=== PATIENT | female | born 1950 | race Caucasian/White ===

== ENCOUNTER 2016-12-26 09:25 | Inpatient (IN) | payer MEDICAID, MEDICARE ==
[2016-12-26 09:51] LABS: Oxyhemoglobin 93.9 % (94.0-97.0); Sodium 141 mmol/L (135-148)
[2016-12-26 09:56] LABS: Modified Allen's Test NOT DONE
[2016-12-26 09:57] LABS: #Eosinphils 0.3 thou/uL (0.0-0.7); #Lymphocytes 0.8 thou/uL (1.20-3.40); #Monocytes 0.5 thou/uL (0.11-0.59); #Neutrophils 7.2 thou/uL (1.40-6.50); %Basophils 0.5 % (0.0-1.0); %Eosinophils 3.4 % (0.0-10.0); %Lymphocytes 9.3 % (21.0-51.0); %Monocytes 5.9 % (0.0-10.0); Hematocrit 44.9 % (36.0-47.0); Mean Platelet Volume 7.9 fL (7.4-10.4); Red Blood Cell (RBC) Count 4.64 mill/uL (4.20-5.40); White Blood Cell (WBC) Count 8.9 thou/uL (4.8-10.8)
[2016-12-26 09:57] LABS: Mode O2 8L/M NEB MASK; Vent NO
[2016-12-26 10:10] LABS: Lactic Acid - Sepsis 2.4 mmol/L (0.5-2.2)
[2016-12-26 10:15] LABS: ALT (SGPT) 19 U/L (8-55); AST (SGOT) 25 U/L (5-34); Alkaline Phosphatase 126 U/L (40-150); Anion Gap 14 mmol/L (10-20); BUN (Urea Nitrogen) 9 mg/dL (9.8-20.1); Bilirubin, Total 0.4 mg/dL (0.2-1.2); Calc. Creatinine Clearance 0 mL/min (70-130); Calcium 9.4 mg/dL (7.8-10.44); Carbon Dioxide 28 mmol/L (23-31); Chloride 104 mmol/L (98-107); Estimated GFR-MDRD 61; Globulin 3.9 g/dL (2.4-3.5); Protein, Total 7.4 g/dL (6.0-8.3)
[2016-12-26] MEDS ORDERED: methylPREDNISolone Sod Succ/PF 125 MG/2 ML VIAL ONE (10:24)
--- NOTE | 2016-12-26 10:25 | RAD ---
PORTABLE UPRIGHT FRONTAL CHEST RADIOGRAPH: DATE: 12/26/16. COMPARISON: 03/31/16. HISTORY: Low oxygen saturation, history of COPD, fever, difficulty breathing. FINDINGS: Heart and mediastinal contours are grossly unchanged. No pneumothorax is seen. There are diffuse i ncreased linear interstitial densities with pulmonary hyperinflation, similar when compared to the p rior exam. There is asymmetric increased linear density in the lateral aspect of the mid left lung zone and lef t perihilar region. There is dense opacity in the left base suggesting left lower lobe consolidatio n/collapse and left pleural fluid. Aeration in the left lung has worsened since the prior exam. IMPRESSION: Chronic interstitial opacity with pulmonary hyperinflation. Focal opacity in the left lung base has worsened and may signify volume loss, infectious pneumonitis, aspiration, and/or small volume pleur al fluid. POS: [facility]
[2016-12-26] MEDS ORDERED: Albuterol Sulfate 2.5 mg/3 ml Neb ONE (10:39)
[2016-12-26] MEDS ORDERED: cefTRIAXone\\ROCEPHIN 2 GM in Sodium Chloride 0.9% 100 ML IVPB ONE (10:45)
[2016-12-26 11:22] LABS: Bilirubin Negative (Negative); Blood, Urine Negative (Negative); Glucose, Urine (Dipstick) Negative (Negative); Ketone, Urine Negative (Negative); Nitrite Negative (Negative); Protein, Urine (Dipstick) Negative (Neg-Trace)
[2016-12-26 17:58] VITALS: BMI 33.1
[2016-12-26] MEDS ORDERED: Ondansetron ODT 4 MG TAB SL PRN (18:19)
[2016-12-26] MEDS ORDERED: Acetaminophen 325 MG TAB PO PRN ×2 (18:19→19:06)
[2016-12-26] MEDS ORDERED: Ondansetron HCl/PF 4 MG/2 ML Vial IVP PRN (18:19)
[2016-12-26] MEDS ORDERED: Dextrose 5 %-0.45 % NaCl 1,000 ML IV SCH (18:30)
[2016-12-26] MEDS: Sodium Chloride 0.45% 1,000 ML IV SCH (19:54)
[2016-12-26] MEDS: Cefepime 1 GM, Admixture Fee 1 EACH in Sterile Water 10 ML SLOW IVP SCH (19:54)
[2016-12-26] MEDS: Milk Of Magnesia 30 ML UDCUP PO SCH (21:41)
[2016-12-26] MEDS: Baclofen 10 MG TAB PO SCH (21:42)
[2016-12-26] MEDS: HYDROcodone/Acetaminophen 10/325 mg Tablet PO SCH (21:42)
[2016-12-26] MEDS: Senokot S 8.6-50 MG TAB PO SCH (21:42)
[2016-12-26] MEDS: ALPRAZolam 0.5 MG TAB PO SCH (21:43)
[2016-12-26] MEDS: Ondansetron ODT 4 MG TAB PO SCH (21:43)
[2016-12-26] MEDS: Ferrous Sulfate 325 MG TAB PO SCH (21:43)
[2016-12-26] MEDS: traZODone HCl 50 MG TAB PO SCH (21:43)
[2016-12-26] MEDS: Atorvastatin Calcium 40 MG TAB PO SCH (21:43)
[2016-12-26] MEDS: guaiFENesin ER 600 MG TAB PO SCH (21:44)
[2016-12-27] MEDS: Cefepime 1 GM, Admixture Fee 1 EACH in Sterile Water 10 ML SLOW IVP SCH ×3 (03:45→21:48)
--- NOTE | 2016-12-27 06:06 | HP ---
DATE OF ADMISSION: 12/26/2016 REASON FOR ADMISSION AND CHIEF COMPLAINT: Shortness of breath and hypoxia. HISTORY OF PRESENT ILLNESS: Ms. Freeman is a 66-year-old female with past medical histor y of COPD, hypertension, chronic pain, anxiety disorder, who was found to have hypoxia with O2 satur ation around 70s. The patient has been complaining of some shortness of breath this morning and donna e cough with yellowish sputum. EMS was called because of her respiratory distress. EMS found the p atient with respiratory distress, chest wheezing and also possible fever as well. The patient recei angel neb treatments. In the ER, the patient was evaluated and found to have a temperature of 101.1, respirations of 30, pulse of 128. In the ER, the patient thought she may have sepsis with possible pneumonia and chronic obstructive pulmonary disease exacerbation as well. The patient received ceft riaxone, Levaquin, and DuoNebs and admitted for further evaluation and management. PAST MEDICAL HISTORY: Includes COPD, chronic anemia, chronic back pain, anxiety disorder, hyperlipi demia, hypertension, and gastroesophageal reflux disease. PAST SURGICAL HISTORY: Status post tubal ligation, status post lobectomy in the left side. CURRENT MEDICATIONS: The patient is on Tylenol p.r.n., albuterol inhaler q.i.d. p.r.n., Xanax 1 mg t.i.d., Lipitor 40 mg at bedtime, baclofen 10 mg b.i.d., Symbicort 160/4.5 two puffs b.i.d. da yaneli, cyproheptadine 2 mg q.i.d., ferrous sulfate 325 mg b.i.d., Prozac 40 mg daily, Lasix 40 mg b.i. d., [place] 10/325 t.i.d., DuoNebs q.i.d., milk of magnesia p.r.n., Zofran p.r.n., MiraLax 17 grams da yaneli, KCl 10 mEq daily, Senokot p.r.n., trazodone 25 mg at bedtime. ALLERGIES: Multiple includes PENICILLIN, AMITRIPTYLINE and KETOROLAC. FAMILY HISTORY: Nothing significant. SOCIAL HISTORY: The patient is a resident of [facility]. No history of smoking. No hist ory of alcohol intake. REVIEW OF SYSTEMS: Cardiovascular: Has no chest pain. Has shortness of breath. Respiratory: Has cough and fever. Gastrointestinal: No nausea or vomiting. No abdominal pain. Genitourinary: No dysuria or hematuria. Central nervous system: No headache, no dizziness. PHYSICAL EXAMINATION: GENERAL: The patient is awake, not very alert. VITAL SIGNS: Temperature now 98.6, pulse 93, respirations 24, blood pressure 114/63. HEENT: Head is normocephalic, atraumatic. Pupils are equal and reactive to light. Nasopharynx is pale and dry. Hard and soft palate, no lesions seen. SKIN: Turgor is decreased. NECK: Supple. No JVD. LUNGS: Breath sounds diminished bilaterally. Percussion dull bilaterally. Expiratory wheeze prese nt bilaterally. CARDIAC: S1, S2 regular. ABDOMEN: Soft, no distention, no tenderness. Normal bowel sounds present. RECTAL: Deferred. CENTRAL NERVOUS SYSTEM: No focal deficits. LABORATORY AND X-RAY FINDINGS: CBC shows WBC 8.9, hemoglobin 14, hematocrit 44, platelets 262. Met abolic panel: Sodium 141, potassium 4.7, chloride 104, CO2 of 28, urea nitrogen 9, creatinine 0.91, glucose 146. Lactic acid 2.4. Urinalysis negative. ABG shows pH 7.4, pCO2 of 56, pO2 86, saturat ion 96%. EKG shows chronic interstitial markings with pulmonary hyperinflation. There is a focal o pacity in the left base, which is worsened. ASSESSMENT: 1. Acute on chronic respiratory failure secondary to chronic obstructive pulmonary disease. 2. Possible pneumonia, left lower lobe. 3. Systemic inflammatory response syndrome. 4. Encephalopathy, metabolic. 5. Chronic back pain. 6. Anxiety disorder. 7. Gastroesophageal reflux disease. 8. Chronic anemia. PLAN: 1. Vital signs q.4 hours. 2. Activity: As tolerated. 3. Allergies: PENICILLIN, AMITRIPTYLINE, KETOROLAC. 4. Diet: Regular. 5. Cefepime 1 gram IV piggyback q.6 hours. 6. Solu-Medrol 40 mg IVP q.6 hours. 7. Mucinex 600 b.i.d. 8. DuoNebs 1 unit q.4 hours. 9. IV fluids: Half normal at 70 mL per hour. 10. We will continue retirement medications. 11. Consult Infectious Disease.
[2016-12-27] MEDS: Mometasone/Formoterol 120 PUFF INHALER INH SCH ×2 (06:09→18:25)
[2016-12-27] MEDS: Ondansetron ODT 4 MG TAB PO SCH ×3 (06:56→21:49)
[2016-12-27] MEDS: Milk Of Magnesia 30 ML UDCUP PO SCH ×2 (09:28→21:46)
[2016-12-27] MEDS: Baclofen 10 MG TAB PO SCH ×2 (09:28→21:46)
[2016-12-27] MEDS: Potassium Chloride 10 MEQ TAB PO SCH (09:28)
[2016-12-27] MEDS: guaiFENesin ER 600 MG TAB PO SCH ×2 (09:28→21:49)
[2016-12-27] MEDS: Polyethylene Glycol 3350 17 GM Packet PO SCH (09:28)
[2016-12-27] MEDS: ALPRAZolam 0.5 MG TAB PO SCH ×3 (09:29→21:49)
[2016-12-27] MEDS: FLUoxetine HCl 20 MG CAP PO SCH (09:29)
[2016-12-27] MEDS: HYDROcodone/Acetaminophen 10/325 mg Tablet PO SCH ×3 (09:29→21:47)
[2016-12-27] MEDS: Ferrous Sulfate 325 MG TAB PO SCH ×2 (09:30→21:46)
[2016-12-27] MEDS: Loratadine 10 MG TAB PO SCH (09:30)
[2016-12-27] MEDS: Sodium Chloride 0.45% 1,000 ML IV SCH (10:32)
--- NOTE | 2016-12-27 20:17 | CON ---
DATE OF CONSULTATION: 12/27/2016 HISTORY OF PRESENT ILLNESS: She was admitted yesterday evening for shortness of breath. 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 She is lethargic. She is on multiple medications, known history of COPD. X-rays re viewed over the course of a year, has had persistent left-sided loss of volume; pleural effusion may be an infiltrate. Her oxygen saturations were low in the [facility], though she denied any cough ing or wheezing. Temperature 102. Difficulty to get much more history at this stage. PAST MEDICAL HISTORY: Reviewing the past medical record, it is pertinent for multiple medical probl ems including COPD, chronic pain, previous , previous anxiety. PREVIOUS SURGERIES: Status post lobectomy and tubal ligation. MEDICATIONS: From home includes trazodone 25, prednisone 20, potassium, nystatin, magnesium, Clarit in, hydrocodone, Lasix, Prozac 40, Zyrtec, Symbicort, baclofen and ProAir. ALLERGIES: Multiple includes AMITRIPTYLINE, PENICILLIN and ELLIPTA. SOCIAL/FAMILY HISTORY: Unremarkable. REVIEW OF SYSTEMS: Otherwise, difficult to obtain. PHYSICAL EXAMINATION: VITAL SIGNS: Blood pressure 101/43, sats are 94% on 2 liters and temperature 96. CHEST: Decreased breath sounds without any wheezing. CARDIAC: Normal S1 and S2. No gallops. ABDOMEN: Soft. No masses. LABORATORY AND IMAGING DATA: White count 8000, hemoglobin and hematocrit 14 and 43, platelet count 262. PO2 was 86, PCO2 of 56, pH 7.40 apparently Ventimask. Electrolytes are normal. X-ray as note d. IMPRESSION: 1. Acute on chronic respiratory failure, severe deconditioning, left-sided chronic changes. Magrarita rutherford, has a left lower lobectomy in the past. 2. Polypharmacy. 3. Chronic pain. PLAN: She is on adequate medicines including antibiotics, neb treatments and steroids, which she wi ll continue. Minimize sedation. Apparently, she is a DNR. We will follow while in the MICU.
[2016-12-27] MEDS: Sodium Chloride 0.9% 1,000 ML IV SCH (21:48)
[2016-12-27] MEDS: Senokot S 8.6-50 MG TAB PO SCH (21:49)
[2016-12-27] MEDS: traZODone HCl 50 MG TAB PO SCH (21:49)
[2016-12-27] MEDS: Atorvastatin Calcium 40 MG TAB PO SCH (21:49)
[2016-12-28] MEDS: Cefepime 1 GM, Admixture Fee 1 EACH in Sterile Water 10 ML SLOW IVP SCH ×3 (04:45→20:36)
[2016-12-28] MEDS: Ondansetron ODT 4 MG TAB PO SCH ×4 (06:15→20:37)
[2016-12-28] MEDS: Mometasone/Formoterol 120 PUFF INHALER INH SCH ×2 (07:13→18:20)
[2016-12-28] MEDS: ALPRAZolam 0.5 MG TAB PO SCH ×3 (10:27→20:37)
[2016-12-28] MEDS: Ferrous Sulfate 325 MG TAB PO SCH ×2 (10:28→20:37)
[2016-12-28] MEDS: Baclofen 10 MG TAB PO SCH ×2 (10:28→20:38)
[2016-12-28] MEDS: FLUoxetine HCl 20 MG CAP PO SCH (10:28)
[2016-12-28] MEDS: Loratadine 10 MG TAB PO SCH (10:29)
[2016-12-28] MEDS: Potassium Chloride 10 MEQ TAB PO SCH (10:29)
[2016-12-28] MEDS: guaiFENesin ER 600 MG TAB PO SCH ×2 (10:29→20:38)
[2016-12-28] MEDS: HYDROcodone/Acetaminophen 10/325 mg Tablet PO SCH ×3 (10:29→20:37)
[2016-12-28] MEDS: Milk Of Magnesia 30 ML UDCUP PO SCH ×2 (10:31→20:38)
[2016-12-28] MEDS: Polyethylene Glycol 3350 17 GM Packet PO SCH (10:32)
[2016-12-28 10:35] LABS: Vancomycin, Trough Less than 1.1 ug/mL
[2016-12-28] MEDS: Sodium Chloride 0.9% 1,000 ML IV SCH (10:40)
--- NOTE | 2016-12-28 16:35 | PRG ---
DATE OF SERVICE: 12/28/2016 SUBJECTIVE: Ms. Freeman did well. Apparently overnight, she is off BiPAP and put back on BiPAP th is afternoon for small respiratory distress. OBJECTIVE: VITAL SIGNS: She is afebrile, heart rate is 89, respiratory rate is 14, oximetry is 95, blood press ure 111/58. LUNGS: Distant, no wheezing is heard. HEART: Regular rhythm. ABDOMEN: Soft. IMPRESSION: 1. Acute on chronic respiratory failure. 2. Severe deconditioning ? pneumonia at her left base. PLAN: Continue current care, supportive care, and noninvasive ventilation, empiric antimicrobial th erapy and serial exams.
[2016-12-28] MEDS: Senokot S 8.6-50 MG TAB PO SCH (20:36)
[2016-12-28] MEDS: Atorvastatin Calcium 40 MG TAB PO SCH (20:36)
[2016-12-28] MEDS: traZODone HCl 50 MG TAB PO SCH (20:36)
[2016-12-29] MEDS: Sodium Chloride 0.9% 1,000 ML IV SCH ×2 (03:18→12:37)
[2016-12-29] MEDS: Cefepime 1 GM, Admixture Fee 1 EACH in Sterile Water 10 ML SLOW IVP SCH ×3 (05:27→20:06)
[2016-12-29] MEDS: Ondansetron ODT 4 MG TAB PO SCH ×3 (05:35→21:36)
[2016-12-29] MEDS: Mometasone/Formoterol 120 PUFF INHALER INH SCH ×2 (07:28→18:38)
[2016-12-29] MEDS: Potassium Chloride 10 MEQ TAB PO SCH (08:58)
[2016-12-29] MEDS: Baclofen 10 MG TAB PO SCH ×2 (08:58→20:10)
[2016-12-29] MEDS: guaiFENesin ER 600 MG TAB PO SCH ×2 (08:59→20:11)
[2016-12-29] MEDS: ALPRAZolam 0.5 MG TAB PO SCH ×3 (08:59→20:10)
[2016-12-29] MEDS: HYDROcodone/Acetaminophen 10/325 mg Tablet PO SCH ×3 (08:59→20:11)
[2016-12-29] MEDS: Ferrous Sulfate 325 MG TAB PO SCH ×2 (09:00→20:11)
[2016-12-29] MEDS: FLUoxetine HCl 20 MG CAP PO SCH (09:00)
[2016-12-29] MEDS: Loratadine 10 MG TAB PO SCH (09:00)
[2016-12-29] MEDS: Milk Of Magnesia 30 ML UDCUP PO SCH ×2 (09:01→20:12)
[2016-12-29] MEDS: Polyethylene Glycol 3350 17 GM Packet PO SCH (09:01)
--- NOTE | 2016-12-29 12:42 | PRG ---
DATE OF SERVICE: 12/29/2016 Ms. Freeman says she feels better. She is off noninvasive support. She did confirm that she is a DNR. PHYSICAL EXAMINATION: VITAL SIGNS: She is afebrile, heart rate 62, respiratory rate 10. Oximetry is 91, blood pressure 1 22/58. LUNGS: Lungs are clear anteriorly. HEART: Regular rhythm. ABDOMEN: Abdomen is soft. LABORATORY DATA: There is no new lab. IMPRESSION: 1. Extreme deconditioning. 2. ? Superimposed pneumonia. 3. Chronic pain. She is stable to move out of the Critical Care Unit. Her biggest issue is her complete lack of inac tivity has led her to a point where she is barely strong enough to breathe without compromise much l ess with a little bit of pneumonia. I have explained this to her.
[2016-12-29] MEDS: traZODone HCl 50 MG TAB PO SCH (20:07)
[2016-12-29] MEDS: Senokot S 8.6-50 MG TAB PO SCH (20:07)
[2016-12-29] MEDS: Atorvastatin Calcium 40 MG TAB PO SCH (20:11)
[2016-12-30] MEDS: Sodium Chloride 0.9% 1,000 ML IV SCH (02:18)
[2016-12-30] MEDS: Cefepime 1 GM, Admixture Fee 1 EACH in Sterile Water 10 ML SLOW IVP SCH (03:52)
[2016-12-30] MEDS: Ondansetron ODT 4 MG TAB PO SCH ×2 (05:18→13:58)
[2016-12-30 05:29] LABS: #Lymphocytes 0.4 thou/uL (1.20-3.40); #Monocytes 0.3 thou/uL (0.11-0.59); %Basophils 0.1 % (0.0-1.0); %Eosinophils 0.4 % (0.0-10.0); %Lymphocytes 8.5 % (21.0-51.0); %Monocytes 5.8 % (0.0-10.0); Hematocrit 39.4 % (36.0-47.0); Mean Platelet Volume 7.9 fL (7.4-10.4); Red Blood Cell (RBC) Count 4.12 mill/uL (4.20-5.40); White Blood Cell (WBC) Count 4.7 thou/uL (4.8-10.8)
[2016-12-30 05:51] LABS: Anion Gap 15 mmol/L (10-20); BUN (Urea Nitrogen) 17 mg/dL (9.8-20.1); Calc. Creatinine Clearance 103 mL/min (70-130); Calcium 8.6 mg/dL (7.8-10.44); Carbon Dioxide 25 mmol/L (23-31); Chloride 103 mmol/L (98-107); Estimated GFR-MDRD 81
[2016-12-30] MEDS: Mometasone/Formoterol 120 PUFF INHALER INH SCH (06:52)
[2016-12-30] MEDS: Loratadine 10 MG TAB PO SCH (08:40)
[2016-12-30] MEDS: Milk Of Magnesia 30 ML UDCUP PO SCH (08:40)
[2016-12-30] MEDS: HYDROcodone/Acetaminophen 10/325 mg Tablet PO SCH ×3 (08:40→13:58)
[2016-12-30] MEDS: ALPRAZolam 0.5 MG TAB PO SCH ×2 (08:40→13:58)
[2016-12-30] MEDS: Ferrous Sulfate 325 MG TAB PO SCH (08:40)
[2016-12-30] MEDS: Potassium Chloride 10 MEQ TAB PO SCH (08:41)
[2016-12-30] MEDS: guaiFENesin ER 600 MG TAB PO SCH (08:41)
[2016-12-30] MEDS: Polyethylene Glycol 3350 17 GM Packet PO SCH (08:41)
[2016-12-30] MEDS: Baclofen 10 MG TAB PO SCH (08:41)
[2016-12-30] MEDS: FLUoxetine HCl 20 MG CAP PO SCH (08:41)
--- NOTE | 2016-12-30 12:24 | PRG ---
DATE OF SERVICE: 12/30/2016 SUBJECTIVE: Ms. Freeman is in no distress. OBJECTIVE: VITAL SIGNS: She is afebrile, heart rate 72, respiratory rate 16, oximetry is 99%, and blood pressu re 124/77. LUNGS: Clear anteriorly. HEART: Regular rhythm. ABDOMEN: Soft. IMPRESSION: 1. Extreme deconditioning. 2. ? superimposed pneumonia. 3. Chronic pain. Again, she was out of bed time at the long-term was emphasized. If she lies in bed all day every day, I have explained to her that she will likely be right back in the hospital with pneumonia or an other illness. She is medically stable in my opinion.
[2016-12-30 15:37] VITALS: BP 112/71; TEMP 98.5
[2016-12-30] MEDS ORDERED: Cefdinir 300 MG CAP PO SCH (21:00)
[2016-12-31] MEDS ORDERED: predniSONE 20 MG TAB PO SCH (08:00)
--- NOTE | 2017-01-02 13:35 | DIS ---
ADMITTING DIAGNOSES: 1. Acute on chronic respiratory failure secondary to chronic obstructive pulmonary disease exacerba tion. 2. Possible pneumonia, left lower lobe. 3. Systemic inflammatory response syndrome. 4. Metabolic encephalopathy. 5. Chronic back pain. 6. Anxiety disorder. 7. Gastroesophageal reflux disease. 8. Chronic anemia. FINAL DIAGNOSES: 1. Acute on chronic respiratory failure secondary to chronic obstructive pulmonary disease exacerba tion, improved. 2. Possible superimposed pneumonia. 3. Systemic inflammatory response syndrome, resolved. 4. Extreme deconditioning. 5. Chronic pain. 6. Anxiety disorder. 7. Chronic anemia. BRIEF SUMMARY OF HOSPITAL COURSE: Ms. Freeman is a 66-year-old female admitted because o f shortness of breath. The patient with respiratory failure due to chronic obstructive pulmonary di sease exacerbation, suggested to have superimposed pneumonia as well. She was started on neb treatm ents, Solu-Medrol, and cefepime, Mucinex and DuoNebs. The patient's breathing improved in the next few days. Pulmonary consult was done. The patient was seen by Dr. Avelar who suggested to continue w ith the steroids, neb treatments, and antibiotics. The patient's breathing improved and her wheezin g resolved. Her medications were changed to Solu-Medrol was discontinued and changed to prednisone and antibiotic changed to p.o. In view of improvement, the patient was discharged. At the time of discharge, she was stable. Her vital signs were stable. Lungs were clear. Heart sounds regular. Abdomen was soft, nontender. Geoff wel sounds present. DISCHARGE MEDICATIONS: Include ProAir inhaler 2 puffs q.i.d. p.r.n., cetirizine 10 mg daily, trazod one 25 mg at bedtime, Senna Plus daily, Zofran p.r.n., baclofen 10 mg b.i.d., Lipitor 40 mg at bedti me, Xanax 1 mg t.i.d., MiraLax 17 grams b.i.d., [place] 10/325 t.i.d., Prozac 40 mg daily, Milk of Mag nesia b.i.d. p.r.n., Symbicort 160/4.5 two puffs b.i.d., ferrous sulfate b.i.d., Lasix 40 mg daily, Tylenol p.r.n., DuoNebs q.i.d., KCl 10 mEq daily, prednisone in tapering doses. FOLLOWUP: The patient will be followed up at [facility] and she will be on home oxygen.
--- NOTE | 2017-01-06 06:18 | PQF ---
CARLOS SOLORZANO VENKAT R MD [id number] [facility]- [id number] CLINICAL DOCUMENTATION CLARIFICATION FORM: POST DISCHARGE Addendum to original discharge summary date: ____ Late entry note date: __ CARLOS SOLORZANO [id number] BLESSING AVALOS MD YOUR INPUT IS NEEDED TO CORRECTLY CODE A DIAGNOSIS FOR YOUR PATIENT. DATE: 01/06/2017 ATTN: DR. AVALOS Please exercise your independent, professional judgment in responding to the clarification form. Clinical indicators are provided on the bottom of this form for your review Please check appropriate box(s) to clarify if the following diagnosis has been ruled in our ruled out: ____SEPSIS (CDI/Coding list diagnosis here) [ ] Ruled in diagnosis [ ] Continue to treat [ ] Resolved [ y ] Ruled out diagnosis [ ] Cannot rule out diagnosis [ ] Other diagnosis [ ] Unable to determine In addition, please specify: Present on Admission (POA): [ ] Yes [ ] No [ ] Unable to determine For continuity of documentation, please document condition throughout progress notes and discharge summary. Thank You. CLINICAL INDICATORS - SIGNS / SYMPTOMS / LABS ER - SEPSIS / PNA LABS: 12-26 LACTIC ACID 2.4 PULSE -83-110 RESP - 18-24 TEMP - RECTAL 1002.4 OXYGEN 85% ON RA - O2 SAT 92-96% ON 4L NC H&P - SIRS, ENCEPHALOPATHY, ACUTE ON CHRONIC RESP FAILURE W/ COPD AND POSSIBLE PNA DS - SIRS, RESOLVED RISK FACTORS PNA ACUTE ON CHRONIC RESP FAILURE COPD TREATMENTS 12/26 - RECEPHIN / MAXIPIME 11-6 TO 12-30 11-6 - ELIA RENEE; IVF / IMCU (This form is maintained as a part of the permanent medical record) 2014 [email or web address], [email or web address]. All Rights Reserved Michelle Resendiz CCS, RAC SPECIALIST-H [email or web address] [phone] MTDD
== END 2016-12-30 17:48 | DRG 193 ==
LOC: ERS 09:25 → ERHOLD 11:14 → IMCU/EMU 17:44 → T4-B 12-29 14:32
PROVIDERS: ADMIT Internal Medicine; ATTEND Internal Medicine
PROC: 5A09357 Assistance with Respiratory Ventilation, Less than 24 Consecutive Hours, Continuous Positive Airway Pressure (ICD-10-PCS; principal; 2016-12-28)
DX: J18.9 Pneumonia, unspecified organism (principal); G93.41 Metabolic encephalopathy; J96.20 Acute and chronic respiratory failure, unspecified whether with hypoxia or hypercapnia; J44.0 Chronic obstructive pulmonary disease with (acute) lower respiratory infection; R65.10 Systemic inflammatory response syndrome (SIRS) of non-infectious origin without acute organ dysfunction; J44.1 Chronic obstructive pulmonary disease with (acute) exacerbation; F41.9 Anxiety disorder, unspecified; K21.9 Gastro-esophageal reflux disease without esophagitis; D64.9 Anemia, unspecified; Z66 Do not resuscitate; E78.5 Hyperlipidemia, unspecified; I10 Essential (primary) hypertension; M54.9 Dorsalgia, unspecified; Z88.0 Allergy status to penicillin
CPT/HCPCS: 36415; 51701; 71010; 80048; 80053; 80202; 81003; 82805; 83605; 83880; 85025; 87040; 87086; 94640; 94660; 96361; 96365; 96375; A4216; A4353; J0692; J0696; J1956; J2920; J2930; J7050; J7611; J7620; Q0162

== ENCOUNTER 2017-01-27 07:51 | Inpatient (IN) | payer MEDICARE, MEDICAID ==
[2017-01-27] MEDS ORDERED: methylPREDNISolone Sod Succ/PF 125 MG/2 ML VIAL ONE (08:24)
[2017-01-27] MEDS ORDERED: Water For Inject, Bacteriostat 30 ML ONE (08:24)
[2017-01-27] MEDS ORDERED: Albuterol Sulfate 2.5 mg/0.5 ml Neb ONE ×4 (08:25→08:26)
[2017-01-27 08:36] LABS: Anion Gap 7 mmol/L (-14-95); T. Carbon Dioxide 37.5 mmol/L (1.0-85.0); pH (Venous) 7.504 (7.35-7.45); vO2 Saturation-calc 94.2 % (0.0-100.0)
[2017-01-27 08:38] LABS: #Eosinphils 0.3 thou/uL (0.0-0.7); #Lymphocytes 1.8 thou/uL (1.20-3.40); #Monocytes 0.8 thou/uL (0.11-0.59); #Neutrophils 5.5 thou/uL (1.40-6.50); %Basophils 0.2 % (0.0-1.0); %Lymphocytes 21.7 % (21.0-51.0); %Monocytes 9.5 % (0.0-10.0); Mean Platelet Volume 8.5 fL (7.4-10.4); Red Blood Cell (RBC) Count 4.41 mill/uL (4.20-5.40); White Blood Cell (WBC) Count 8.4 thou/uL (4.8-10.8)
--- NOTE | 2017-01-27 08:49 | RAD ---
UPRIGHT PORTABLE CHEST 1 VIEW: Date: 01/27/17 HISTORY: 66-year-old female with dyspnea, personal history of lung cancer and lobectomy. COMPARISON: 12/26/16. FINDINGS: Monitor leads overlie the chest. Volume loss in the left chest consistent with history of lobectomy. Heart size is normal. The right lung is clear of acute process. There are stable increased linear and interstitial markings. IMPRESSION: Stable chronic changes and post left lobectomy. No acute process. No evidence for pneumonia. POS: [facility]
[2017-01-27 09:00] LABS: ALT (SGPT) 38 U/L (8-55); AST (SGOT) 23 U/L (5-34); Alkaline Phosphatase 126 U/L (40-150); Anion Gap 14 mmol/L (10-20); BUN (Urea Nitrogen) 11 mg/dL (9.8-20.1); Bilirubin, Total 0.4 mg/dL (0.2-1.2); CK (CPK) 27 U/L (29-168); Calc. Creatinine Clearance 0 mL/min (70-130); Carbon Dioxide 32 mmol/L (23-31); Chloride 97 mmol/L (98-107); Estimated GFR-MDRD 61; Globulin 3.3 g/dL (2.4-3.5); Lipase 17 U/L (8-78); Protein, Total 6.8 g/dL (6.0-8.3)
[2017-01-27 09:04] LABS: Troponin I Less than 0.010 ng/mL (< 0.028)
[2017-01-27 09:08] LABS: Anion Gap 6 mmol/L (-14-95); T. Carbon Dioxide 41.6 mmol/L (1.0-85.0); pH (Venous) 7.339 (7.35-7.45); vO2 Saturation-calc 93.6 % (0.0-100.0)
[2017-01-27 09:23] LABS: PTT 30.1 SEC (22.9-36.1); Prothrombin Time 12.7 SEC (12.0-14.7)
[2017-01-27] MEDS ORDERED: ALPRAZolam 0.25 MG TAB ONE (10:38)
[2017-01-27] MEDS ORDERED: HYDROcodone/Acetaminophen 5/325 mg Tablet ONE (10:38)
[2017-01-27] MEDS ORDERED: Magnesium Sulfate 2 GM/100 ML BAG ONE (12:26)
[2017-01-27 13:29] LABS: Troponin I 0.018 ng/mL (< 0.028)
[2017-01-27 14:18] VITALS: BMI 30.2
[2017-01-27 16:30] LABS: Troponin I 0.017 ng/mL (< 0.028)
[2017-01-27] MEDS ORDERED: Senokot S 8.6-50 MG TAB PO PRN (19:13)
[2017-01-27] MEDS ORDERED: Acetaminophen 325 MG TAB PO PRN (19:15)
[2017-01-27] MEDS ORDERED: Ferrous Sulfate 325 MG TAB PO SCH (19:30)
[2017-01-27] MEDS ORDERED: Mometasone/Formoterol 120 PUFF INHALER INH SCH (19:30)
[2017-01-27] MEDS: ALPRAZolam 1 MG TAB PO SCH (21:01)
[2017-01-27] MEDS: Baclofen 10 MG TAB PO SCH (21:01)
[2017-01-27] MEDS: guaiFENesin ER 600 MG TAB PO SCH (21:01)
[2017-01-27] MEDS: Atorvastatin Calcium 40 MG TAB PO SCH (21:01)
[2017-01-27] MEDS: HYDROcodone/Acetaminophen 10/325 mg Tablet PO SCH (21:01)
[2017-01-27] MEDS: traZODone HCl 50 MG TAB PO SCH (21:02)
[2017-01-27] MEDS: Polyethylene Glycol 3350 17 GM Packet PO SCH (21:04)
[2017-01-27] MEDS: Ondansetron ODT 4 MG TAB PO SCH (21:04)
[2017-01-27] MEDS: Simethicone Chewable 80 MG TAB PO SCH (21:39)
[2017-01-28] MEDS: Ondansetron ODT 4 MG TAB PO SCH ×3 (06:04→21:14)
[2017-01-28] MEDS: Mometasone/Formoterol 120 PUFF INHALER INH SCH ×2 (06:30→19:36)
[2017-01-28] MEDS: ALPRAZolam 1 MG TAB PO SCH ×4 (10:14→21:14)
[2017-01-28] MEDS: HYDROcodone/Acetaminophen 10/325 mg Tablet PO SCH ×4 (10:14→21:25)
[2017-01-28] MEDS: Simethicone Chewable 80 MG TAB PO SCH ×4 (10:15→21:15)
[2017-01-28] MEDS: Polyethylene Glycol 3350 17 GM Packet PO SCH (11:10)
[2017-01-28] MEDS: Potassium Chloride 10 MEQ TAB PO SCH (11:11)
[2017-01-28] MEDS: guaiFENesin ER 600 MG TAB PO SCH ×2 (11:13→21:14)
[2017-01-28] MEDS: Loratadine 10 MG TAB PO SCH (11:14)
[2017-01-28] MEDS: Ferrous Sulfate 325 MG TAB PO SCH ×2 (11:14→17:13)
[2017-01-28] MEDS: Furosemide 40 MG TAB PO SCH (11:15)
[2017-01-28] MEDS: Baclofen 10 MG TAB PO SCH ×2 (11:15→21:15)
[2017-01-28] MEDS: FLUoxetine HCl 20 MG CAP PO SCH (11:17)
[2017-01-28] MEDS: traZODone HCl 50 MG TAB PO SCH (21:13)
[2017-01-28] MEDS: Atorvastatin Calcium 40 MG TAB PO SCH (21:26)
--- NOTE | 2017-01-29 00:43 | HP ---
DATE OF ADMISSION: 01/27/2017 REASON AND CHIEF COMPLAINT: Shortness of breath. HISTORY OF PRESENT ILLNESS: Ms. Freeman is a 66-year-old female with past medical history of end-stage COPD, who [facility] The patient was very hypoxic with O2 saturation in the 60s and 70s. She was turning blue according to the nursing h ome. The patient received neb treatments. She is feeling very short of breath, unable to talk. The patient also has been coughing with yellow sputum, coughing has gone worse as well. All symptoms st arted in the morning when she woke up. Her room air saturations are usually in the upper 80s, but th ey dropped to 60s this morning. In spite of nasal canula, it still stayed in the 80s, so the EMS was called in because of her respiratory distress. EMS found the patient with respiratory failure due t o COPD exacerbation, received neb treatments and the patient was brought to the emergency room where she was evaluated and found to be in respiratory failure due to COPD exacerbation. The patient recei angel Solu-Medrol 125 bolus and IV fluid bolus as well as DuoNeb treatments, also received magnesium choi lfate. The patient felt slightly better after these treatments and she is admitted for further evalu ation and management. The patient is admitted to the floor. PAST MEDICAL HISTORY: 1. End-stage COPD, on home oxygen. 2. Hypertension. 3. Hyperlipidemia. 4. Chronic back pain. 5. Anxiety disorder. 6. Gastroesophageal reflux disease. 7. Hyperlipidemia. PAST SURGICAL HISTORY: Status post tubal ligation and status post lobectomy, left lung. CURRENT MEDICATIONS: Tylenol p.r.n., albuterol inhaler p.r.n. q. 6 hours, Xanax 1 mg t.i.d., Lipitor 40 mg daily, baclofen 10 mg b.i.d., Symbicort 160/4.5 two puffs b.i.d., Zyrtec daily, ferrous sulfat e b.i.d., Prozac 40 mg daily, Lasix 40 mg daily, [place] 10/325 t.i.d., DuoNebs q.i.d., omeprazole 20 m g daily, Zofran p.r.n., MiraLax daily, KCl 10 mEq daily, simethicone daily, trazodone 25 mg at bedti me. ALLERGIES: Multiple includes PENICILLIN, AMITRIPTYLINE, KETOROLAC. FAMILY HISTORY: Nothing of interest. SOCIAL HISTORY: The patient is a resident of [facility]. No history of smoking. No histo ry of alcohol. REVIEW OF SYSTEMS: Cardiovascular: Has chest pain and shortness of breath. Respiratory: Has cough productive with yellow sputum. No fever. Gastrointestinal: Has nausea. No vomiting. Central Ner vous System: No headache, no dizziness. PHYSICAL EXAMINATION: GENERAL: The patient is alert, awake, and oriented x3. VITAL SIGNS: Temperature 98, pulse 129, respirations 24, blood pressure 120/70, O2 saturation 94% on 3 liters. HEENT: Head is normocephalic, atraumatic. Pupils are equal and reactive to light. Nasopharynx is p july and dry. Hard and soft palate. No lesions seen. SKIN: Skin turgor decreased. NECK: Supple. No JVD. LUNGS: Breath sounds diminished bilaterally. Percussion not dull bilaterally. Expiratory wheeze pr esent bilaterally. HEART: S1 and S2 regular. ABDOMEN: Soft. No distention, no tenderness. Normal bowel sounds. RECTAL: Deferred. CENTRAL NERVOUS SYSTEM: The patient is alert, awake, and oriented x3. Motor system power 4/5 in all extremities. Deep tendon reflexes 2+ bilaterally. Plantars downgoing. Sensory intact. LABORATORY DATA: CBC showed a WBC of 8.4, hemoglobin 13, hematocrit 42, platelets 168. Metabolic pa moose: Sodium 139, potassium 3.9, chloride 97, CO2 of 32, BUN 11, creatinine 0.9, and glucose 215. Pr othrombin time 12, INR 0.9. ABG showed pH of 7.5, pCO2 of 45, pO2 of 66, saturation 94%. Repeat ABG showed pH of 7.33, pCO2 73, pO2 of 77, saturation . IMAGING DATA: EKG shows sinus tachycardia with heart rate of 146, no acute ST-T wave changes seen. Chest x-ray showed chronic lung changes. No acute evidence of pneumonia. ASSESSMENT: 1. Acute on chronic respiratory failure. 2. End-stage chronic obstructive pulmonary disease with acute exacerbation. 3. Hypertension. 4. Anemia, chronic. 5. Chronic pain. 6. Hyperlipidemia. 7. Anxiety disorder. 8. Severe deconditioning. PLAN: 1. Vital signs q. 4 hours. 2. Activity: As tolerated. 3. Allergies: Multiple includes PENICILLIN, AMITRIPTYLINE, KETOROLAC. 4. Activity: As tolerated. 5. Diet: Cardiac. 6. Solu-Medrol 40 mg IVP q. 6 hours. 7. DuoNeb 1 unit q. 4 hours. 8. Mucinex 600 b.i.d. 9. Continue [facility] medications, Levaquin 750 mg IV piggyback daily. 10. Oxygen by nasal cannula 3 liters.
[2017-01-29] MEDS: Ondansetron ODT 4 MG TAB PO SCH ×3 (05:54→23:55)
[2017-01-29] MEDS: Mometasone/Formoterol 120 PUFF INHALER INH SCH ×2 (06:24→19:55)
[2017-01-29] MEDS: HYDROcodone/Acetaminophen 10/325 mg Tablet PO SCH ×3 (10:49→20:44)
[2017-01-29] MEDS: Polyethylene Glycol 3350 17 GM Packet PO SCH (10:51)
[2017-01-29] MEDS: Baclofen 10 MG TAB PO SCH ×2 (10:51→20:43)
[2017-01-29] MEDS: FLUoxetine HCl 20 MG CAP PO SCH (10:52)
[2017-01-29] MEDS: Potassium Chloride 10 MEQ TAB PO SCH (10:52)
[2017-01-29] MEDS: Ferrous Sulfate 325 MG TAB PO SCH ×2 (10:52→17:26)
[2017-01-29] MEDS: Furosemide 40 MG TAB PO SCH (10:52)
[2017-01-29] MEDS: ALPRAZolam 1 MG TAB PO SCH ×3 (10:53→20:42)
[2017-01-29] MEDS: Simethicone Chewable 80 MG TAB PO SCH ×5 (10:53→21:47)
[2017-01-29] MEDS: Loratadine 10 MG TAB PO SCH (10:53)
[2017-01-29] MEDS: guaiFENesin ER 600 MG TAB PO SCH ×2 (10:53→20:43)
[2017-01-29] MEDS: traZODone HCl 50 MG TAB PO SCH (20:43)
[2017-01-29] MEDS: Atorvastatin Calcium 40 MG TAB PO SCH (20:43)
[2017-01-30 05:42] LABS: Hematocrit 39.9 % (36.0-47.0)
[2017-01-30 06:00] LABS: Anion Gap 12 mmol/L (10-20); BUN (Urea Nitrogen) 20 mg/dL (9.8-20.1); Calc. Creatinine Clearance 72 mL/min (70-130); Calcium 9.1 mg/dL (7.8-10.44); Carbon Dioxide 32 mmol/L (23-31); Chloride 97 mmol/L (98-107); Estimated GFR-MDRD 58
[2017-01-30] MEDS: Ondansetron ODT 4 MG TAB PO SCH ×3 (06:24→21:00)
[2017-01-30] MEDS: Mometasone/Formoterol 120 PUFF INHALER INH SCH ×3 (08:36→18:53)
[2017-01-30] MEDS: Polyethylene Glycol 3350 17 GM Packet PO SCH (09:38)
[2017-01-30] MEDS: ALPRAZolam 1 MG TAB PO SCH ×3 (09:39→20:58)
[2017-01-30] MEDS: Furosemide 40 MG TAB PO SCH (09:39)
[2017-01-30] MEDS: guaiFENesin ER 600 MG TAB PO SCH ×2 (09:39→20:58)
[2017-01-30] MEDS: Ferrous Sulfate 325 MG TAB PO SCH ×2 (09:39→17:51)
[2017-01-30] MEDS: Loratadine 10 MG TAB PO SCH (09:39)
[2017-01-30] MEDS: Potassium Chloride 10 MEQ TAB PO SCH (09:39)
[2017-01-30] MEDS: HYDROcodone/Acetaminophen 10/325 mg Tablet PO SCH ×3 (09:40→20:58)
[2017-01-30] MEDS: Baclofen 10 MG TAB PO SCH ×2 (09:40→20:58)
[2017-01-30] MEDS: FLUoxetine HCl 20 MG CAP PO SCH (09:40)
[2017-01-30] MEDS: Simethicone Chewable 80 MG TAB PO SCH ×4 (09:40→21:01)
[2017-01-30] MEDS ORDERED: PROVENTIL INHALER 6.7 G (200 INHALATIONS) INH PRN (19:53)
[2017-01-30] MEDS: Atorvastatin Calcium 40 MG TAB PO SCH (20:58)
[2017-01-30] MEDS: traZODone HCl 50 MG TAB PO SCH (21:00)
[2017-01-31] MEDS: Ondansetron ODT 4 MG TAB PO SCH ×3 (06:00→22:15)
[2017-01-31] MEDS: Mometasone/Formoterol 120 PUFF INHALER INH SCH ×2 (06:47→18:37)
[2017-01-31] MEDS: FLUoxetine HCl 20 MG CAP PO SCH (08:11)
[2017-01-31] MEDS: guaiFENesin ER 600 MG TAB PO SCH ×2 (08:11→20:45)
[2017-01-31] MEDS: Ferrous Sulfate 325 MG TAB PO SCH ×2 (08:11→17:46)
[2017-01-31] MEDS: ALPRAZolam 1 MG TAB PO SCH ×3 (08:11→20:44)
[2017-01-31] MEDS: Baclofen 10 MG TAB PO SCH ×2 (08:11→20:44)
[2017-01-31] MEDS: Furosemide 40 MG TAB PO SCH (08:11)
[2017-01-31] MEDS: Polyethylene Glycol 3350 17 GM Packet PO SCH (08:12)
[2017-01-31] MEDS: Potassium Chloride 10 MEQ TAB PO SCH (08:12)
[2017-01-31] MEDS: Loratadine 10 MG TAB PO SCH (08:12)
[2017-01-31] MEDS: HYDROcodone/Acetaminophen 10/325 mg Tablet PO SCH ×3 (08:12→20:45)
[2017-01-31] MEDS: Simethicone Chewable 80 MG TAB PO SCH ×4 (08:20→22:28)
[2017-01-31] MEDS: Atorvastatin Calcium 40 MG TAB PO SCH (20:44)
[2017-01-31] MEDS: traZODone HCl 50 MG TAB PO SCH (20:46)
[2017-02-01] MEDS: Ondansetron ODT 4 MG TAB PO SCH ×3 (05:31→21:34)
[2017-02-01] MEDS: Mometasone/Formoterol 120 PUFF INHALER INH SCH ×2 (07:16→19:07)
[2017-02-01] MEDS: Polyethylene Glycol 3350 17 GM Packet PO SCH (09:28)
[2017-02-01] MEDS: guaiFENesin ER 600 MG TAB PO SCH ×2 (09:29→21:34)
[2017-02-01] MEDS: FLUoxetine HCl 20 MG CAP PO SCH (09:29)
[2017-02-01] MEDS: HYDROcodone/Acetaminophen 10/325 mg Tablet PO SCH ×3 (09:29→21:33)
[2017-02-01] MEDS: Furosemide 40 MG TAB PO SCH (09:29)
[2017-02-01] MEDS: Baclofen 10 MG TAB PO SCH ×2 (09:29→21:33)
[2017-02-01] MEDS: Potassium Chloride 10 MEQ TAB PO SCH (09:30)
[2017-02-01] MEDS: Ferrous Sulfate 325 MG TAB PO SCH ×2 (09:30→16:56)
[2017-02-01] MEDS: Loratadine 10 MG TAB PO SCH (09:30)
[2017-02-01] MEDS: ALPRAZolam 1 MG TAB PO SCH ×3 (09:30→21:33)
[2017-02-01] MEDS: Simethicone Chewable 80 MG TAB PO SCH ×4 (09:30→21:35)
[2017-02-01] MEDS: traZODone HCl 50 MG TAB PO SCH (21:32)
[2017-02-01] MEDS: Atorvastatin Calcium 40 MG TAB PO SCH (21:34)
[2017-02-02 05:47] LABS: Hematocrit 42.6 % (36.0-47.0)
[2017-02-02 05:48] LABS: BUN (Urea Nitrogen) 22 mg/dL (9.8-20.1); Calc. Creatinine Clearance 76 mL/min (70-130); Calcium 9.4 mg/dL (7.8-10.44); Estimated GFR-MDRD 63
[2017-02-02 05:57] LABS: Anion Gap 13 mmol/L (10-20); Carbon Dioxide 36 mmol/L (23-31); Chloride 93 mmol/L (98-107)
[2017-02-02] MEDS: Ondansetron ODT 4 MG TAB PO SCH ×4 (06:48→21:24)
[2017-02-02] MEDS: Mometasone/Formoterol 120 PUFF INHALER INH SCH ×2 (07:58→19:09)
[2017-02-02] MEDS: Polyethylene Glycol 3350 17 GM Packet PO SCH (08:53)
[2017-02-02] MEDS: Simethicone Chewable 80 MG TAB PO SCH ×4 (08:55→21:24)
[2017-02-02] MEDS: Loratadine 10 MG TAB PO SCH (08:56)
[2017-02-02] MEDS: predniSONE 20 MG TAB PO SCH ×2 (08:56→17:12)
[2017-02-02] MEDS: Ferrous Sulfate 325 MG TAB PO SCH ×2 (08:56→17:13)
[2017-02-02] MEDS: Potassium Chloride 10 MEQ TAB PO SCH (08:56)
[2017-02-02] MEDS: Baclofen 10 MG TAB PO SCH ×2 (08:56→21:21)
[2017-02-02] MEDS: guaiFENesin ER 600 MG TAB PO SCH ×2 (08:56→21:21)
[2017-02-02] MEDS: Furosemide 40 MG TAB PO SCH (08:57)
[2017-02-02] MEDS: ALPRAZolam 1 MG TAB PO SCH ×3 (08:57→21:21)
[2017-02-02] MEDS: FLUoxetine HCl 20 MG CAP PO SCH (08:57)
[2017-02-02] MEDS: HYDROcodone/Acetaminophen 10/325 mg Tablet PO SCH ×3 (08:58→21:22)
[2017-02-02] MEDS ORDERED: Nystatin 500,000 UNITS/5 ML UDCUP SSW SCH (19:00)
[2017-02-02] MEDS: Atorvastatin Calcium 40 MG TAB PO SCH (21:21)
[2017-02-02] MEDS: traZODone HCl 50 MG TAB PO SCH (21:23)
[2017-02-03] MEDS: Ondansetron ODT 4 MG TAB PO SCH ×2 (05:44→14:30)
[2017-02-03] MEDS: Mometasone/Formoterol 120 PUFF INHALER INH SCH (07:00)
[2017-02-03 08:01] VITALS: BP 114/71; TEMP 97.6
[2017-02-03] MEDS: predniSONE 20 MG TAB PO SCH (08:21)
[2017-02-03] MEDS: guaiFENesin ER 600 MG TAB PO SCH (08:21)
[2017-02-03] MEDS: ALPRAZolam 1 MG TAB PO SCH ×2 (08:22→14:30)
[2017-02-03] MEDS: Potassium Chloride 10 MEQ TAB PO SCH (08:22)
[2017-02-03] MEDS: Furosemide 40 MG TAB PO SCH (08:22)
[2017-02-03] MEDS: Ferrous Sulfate 325 MG TAB PO SCH (08:22)
[2017-02-03] MEDS: Simethicone Chewable 80 MG TAB PO SCH ×2 (08:22→14:30)
[2017-02-03] MEDS: Loratadine 10 MG TAB PO SCH (08:22)
[2017-02-03] MEDS: Baclofen 10 MG TAB PO SCH (08:22)
[2017-02-03] MEDS: FLUoxetine HCl 20 MG CAP PO SCH (08:22)
[2017-02-03] MEDS: HYDROcodone/Acetaminophen 10/325 mg Tablet PO SCH ×2 (08:23→14:30)
[2017-02-03] MEDS: Polyethylene Glycol 3350 17 GM Packet PO SCH (08:23)
--- NOTE | 2017-02-06 11:48 | DIS ---
DATE OF ADMISSION: 01/27/2017 DATE OF DISCHARGE: 02/03/2017 ADMITTING DIAGNOSES: 1. Acute on chronic respiratory failure. 2. End-stage chronic obstructive pulmonary disease with acute exacerbation. 3. Hypertension. 4. Chronic anemia. 5. Chronic pain. 6. Hyperlipidemia. FINAL DIAGNOSES: 1. Acute on chronic respiratory failure due to end-stage chronic obstructive pulmonary disease with acute exacerbation, improved. 2. Hypoxia, improved. 3. Hypertension. 4. Chronic anemia. 5. Chronic pain. 6. Severe deconditioning. 7. Hyperlipidemia. BRIEF SUMMARY OF HOSPITAL COURSE: Ms. Freeman is a 66-year-old female admitted because of shortness of breath and respiratory failure. The patient was in respiratory distress and had a lot of wheezing bilaterally, found to be in acute exacerbation of end-stage chronic obstructive pulmonary disease. The patient was started on IV Solu-Medrol, neb treatments, as well as Mucinex, and antibio tics. The next few days, her wheezing slowly improved. Her shortness of breath slowly improved. He r cough became less. Her Solu-Medrol dose was decreased and changed to prednisone. Then, the neb tr eatments were decreased. Her anemia remained stable. In view of improvement, the patient is being d [facility]charged back to [facility]. At the time of discharge, she was stable. Vital signs stable. Lung s clear. Heart sounds regular. Abdomen is soft, nontender. Bowel sounds present. DISCHARGE MEDICATIONS: Include albuterol inhaler t.i.d. p.r.n., Zyrtec 10 mg daily, trazodone 25 mg at bedtime, Senna Plus daily, baclofen 10 mg b.i.d., Lipitor 40 mg at bedtime, Xanax 1 mg t.i.d., [place] aLax 17 grams daily, [place] 10/325 t.i.d., Prozac 40 mg daily, Symbicort 160/4.5 two puffs b.i.d., james mine sulfate daily, Lasix 40 mg daily, Tylenol p.r.n., Zofran p.r.n., DuoNebs q.i.d., KCl 10 mEq merry y, omeprazole 20 mg daily, simethicone daily, prednisone in tapering doses, Mucinex 600 b.i.d. for 10 days. FOLLOWUP: The patient will be followed up at the [facility].
== END 2017-02-03 16:23 | DRG 189 ==
LOC: ERS 07:51 → T4-B 12:45
PROVIDERS: ADMIT Internal Medicine; ATTEND Internal Medicine
DX: J96.21 Acute and chronic respiratory failure with hypoxia (principal); Z99.81 Dependence on supplemental oxygen; F32.3 Major depressive disorder, single episode, severe with psychotic features; J44.1 Chronic obstructive pulmonary disease with (acute) exacerbation; I10 Essential (primary) hypertension; E78.5 Hyperlipidemia, unspecified; G89.29 Other chronic pain; M54.9 Dorsalgia, unspecified; K21.9 Gastro-esophageal reflux disease without esophagitis; Z88.1 Allergy status to other antibiotic agents; Z88.0 Allergy status to penicillin; Z85.118 Personal history of other malignant neoplasm of bronchus and lung; Z90.2 Acquired absence of lung [part of]; D50.9 Iron deficiency anemia, unspecified; F18.98 Inhalant use, unspecified with other inhalant-induced disorders
CPT/HCPCS: 36415; 71010; 80048; 80053; 82330; 82553; 82803; 83690; 83880; 84484; 85014; 85018; 85025; 85610; 85730; 93005; 94640; 96361; 96365; 96367; A4216; J1956; J2920; J2930; J3475; J7506; J7611; J7620; Q0162

== ENCOUNTER 2017-02-18 01:41 | Inpatient (IN) | payer MEDICARE, MEDICAID ==
[2017-02-18 02:52] LABS: ALT (SGPT) 62 U/L (8-55); AST (SGOT) 31 U/L (5-34); Albumin 3.9 g/dL (3.4-4.8); Alkaline Phosphatase 111 U/L (40-150); Anion Gap 18 mmol/L (10-20); BUN (Urea Nitrogen) 17 mg/dL (9.8-20.1); Bilirubin, Total 0.5 mg/dL (0.2-1.2); Calc. Creatinine Clearance 0 mL/min (70-130); Calcium 9.6 mg/dL (7.8-10.44); Carbon Dioxide 31 mmol/L (23-31); Chloride 94 mmol/L (98-107); Estimated GFR-MDRD 65; Globulin 3.2 g/dL (2.4-3.5); Glucose 245 mg/dL (80-115); Potassium 4.6 mmol/L (3.5-5.1); Protein, Total 7.1 g/dL (6.0-8.3); Sodium 138 mmol/L (136-145)
[2017-02-18 02:55] LABS: CKMB 2.7 ng/mL (0-6.6); Troponin I 0.026 ng/mL (< 0.028)
[2017-02-18 02:58] LABS: Band 10 % (5-11); Hemoglobin 15.3 g/dL (12.0-16.0); Lymphocytes 11 % (21-51); MDiff Complete? YES; Mean Corpuscular HGB CONC 31.7 g/dL (32.0-36.0); Mean Corpuscular Hemoglobin 29.5 pg (27.0-31.0); Mean Corpuscular Volume 93.1 fl (81.0-99.0); Mean Platelet Volume 8.2 fL (7.4-10.4); Metamyelocyte 2 % (0-0); Monocytes 9 % (0-10); Neutrophil 67 % (42-75); PLT Morphology Comment Appears Adequate; Platelet Count 168 thou/uL (130-400); RBC Morphology Normal; Reactive Lymphocytes 1 % (0-10); Red Blood Cell (RBC) Count 5.19 mill/uL (4.20-5.40); White Blood Cell (WBC) Count 27.5 thou/uL (4.8-10.8)
[2017-02-18] MEDS ORDERED: HYDROcodone/Acetaminophen 10/325 mg Tablet ONE (04:34)
[2017-02-18 06:25] LABS: Lactic Acid 2.7 mmol/L (0.5-2.2)
--- NOTE | 2017-02-18 08:01 | RAD ---
PORTABLE CHEST ONE VIEW: 02/18/2017 2:07 a.m. HISTORY: Dyspnea. COMPARISON: 01/27/2017 FINDINGS: Postop changes and volume loss in the left hemithorax are again seen. The heart size is normal. The right lung is clear. IMPRESSION: No acute process. POS: [facility]
--- NOTE | 2017-02-18 08:07 | CT ---
PRELIMINARY REPORT/[facility]/EMERGENCY AFTER HOURS PROCEDURE: EXAM: CT Angiography Chest With Intravenous Contrast EXAM DATE/TIME: Exam ordered 02/18/2017 3:54 AM CLINICAL HISTORY: 66 years old, female; Signs and symptoms; Dyspnea and shortness of breath; Prior surgery; Patient HX: 66 yo f [place] SOB x2 day. States its progressively gotten worse. Pt recieved so lumedrol and albuterol enroute per ems. Pt arrives to er with o2 of 89% on 4l. 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 Past surgical HX of partial lung removal lt. Lung resection of left upper lobe, tubal ligation TECHNIQUE: Axial computed tomographic angiography images of the chest with intravenous contrast using pulmonary embolism protocol. CONTRAST: 95 mL of ISOVUE 370 administered intravenously. COMPARISON: No relevant prior studies available. FINDINGS: Pulmonary arteries: Unremarkable. No pulmonary embolism. Aorta: No acute findings. No thoracic aortic aneurysm. Lungs: There is nonspecific parenchymal opacity in the left lower lobe which could be scarring or pne umonia superimposed on emphysematous lung. Patchy small peripheral consolidations in the right lower lobe could represent atelectasis/scarring, aspiration, or pneumonia. Mild/moderate emphysema. Volume loss of the left lung. Diffuse bronchial wall thickening with mild mucous plugging in the left lower lobe, consistent with bronchitis which could be due to infection or COPD. Pleural space: Unremarkable. No significant effusion. No pneumothorax. Heart: Suggestion of left ventricular cardiac hypertrophy. No significant pericardial effusion. No ev idence of RV dysfunction. Bones/joints: No acute fracture. No dislocation. Soft tissues: Unremarkable. Lymph nodes: Mildly prominent mediastinal and left hilar lymph nodes measuring up to 1 cm in short ax is, indeterminate. IMPRESSION: 1. There is nonspecific parenchymal opacity in the left lower lobe which could be scarring or pneumon ia superimposed on emphysematous lung. 2. Patchy small peripheral consolidations in the right lower lobe could represent atelectasis/scarrin g, aspiration, or pneumonia. 3. Suggestion of left ventricular cardiac hypertrophy. Recommend comparison with any available prior chest CTs. Thank you for allowing us to participate in the care of your patient. Dictated and Authenticated by: Andres Kilgore MD 02/18/2017 4:17 AM Central Time ([place] & [place]) FINAL REPORT CT PULMONARY ANGIOGRAM WITH IV CONTRAST AND 3D POST PROCESSING: I agree with the preliminary report given by Dr. Andres Kilgore of [facility]. POS: [facility]
[2017-02-18] MEDS ORDERED: Azithromycin 250 MG TAB PO SCH (10:00)
--- NOTE | 2017-02-18 11:54 | HP ---
RENAL MEDICINE HISTORY OF PRESENT ILLNESS: Ms. Freeman is a 66-year-old white female who was admitted for shortnes s of breath. Chest x-ray showed no abnormality. However, the CT scan of the chest showed nonspecifi c parenchymal opacity in the left lower lobe which could be scarring or pneumonia. There is also pat precious small peripheral consolidation in right lower lobe, but again possibility of atelectasis versus p neumonia. We are now admitting this patient for further management of her shortness of breath. She is being em pirically treated for presumed pneumonia and COPD exacerbation. REVIEW OF SYSTEMS: Positive for shortness of breath, chronic in nature as well as an acute exacerbat ion. Denies any fever, no chest pain, no diarrhea or constipation. Appetite is fair. Positive for diffuse joint pain/myalgia. No abdominal pain, no headache, no diplopia, no syncopal episode, positi ve for anxiety. No gross hematuria. No dysuria, no urinary frequency. HOME MEDICATIONS: Includes the following; trazodone 25 mg tab at bedtime, prednisone 10 mg p.o. b.i. d., simethicone 180 mg at bedtime, Senna Plus p.r.n., KCl 10 mEq once a day, MiraLax 17 grams p.o. b. i.d., Zofran 4 mg q.8 p.r.n., DuoNeb q.i.d., furosemide 40 mg daily, ferrous sulfate 325 mg daily, Pr ozac 40 mg daily, Symbicort 160/4.5 day, baclofen 10 mg p.o. b.i.d., and Xanax 1 mg p.o. t.i.d. PAST MEDICAL HISTORY: 1. COPD. 2. Severe anxiety. 3. Hyperlipidemia. 4. Chronic low back pain. 5. GERD. 6. Hypertension. PAST SURGICAL HISTORY: Status post bilateral tubal ligation, status post left lobectomy - left lung. ALLERGIES: PENICILLIN, AMPICILLIN, TORADOL. TRAUMA: None. IMMUNIZATIONS: Up to date. HOSPITALIZATIONS: Please see past medical history. 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 Four children, , smoked for 40 y ears 1 pack a day. No alcohol. No IV drug use. Status post blood transfusion. FAMILY HISTORY: Noncontributory. PHYSICAL EXAMINATION: VITAL SIGNS: Blood pressure is noted at 135/70, heart rate 70, pulse ox is 98%. GENERAL: Awake, obese, anxious, in mild respiratory distress. SKIN: Adequate turgor. HEENT: She has pinkish conjunctivae, anicteric sclerae. NECK: No neck mass, no carotid bruits, no JVD. CHEST: No deformities. LUNGS: Harsh breath sounds. HEART: Normal sinus rhythm. No murmur, no gallops, no rubs. ABDOMEN: Globular, soft, nontender, no masses. EXTREMITIES: No edema, no deformities. NEUROLOGIC: Awake, oriented to 3 spheres. Moving all extremities. No tremors, no asterixis, no donte solo. LABORATORY DATA AND IMAGING DATA: 1. Laboratories of 02/18/2017; white count 27.5, hemoglobin 15.3, sodium 128, potassium 4.6, chlorid e 94, carbon dioxide 31, BUN 17, creatinine 0.87, glucose 245, calcium 9.6, AST 31, ALT 62, troponin I 0.026, BNP 89.4. 2. Chest x-ray no infiltrates. 3. CT scan - bilateral infiltrates, atelectasis versus pneumonia. ASSESSMENT AND PLAN: 1. Shortness of breath - multifactorial etiology. This could be chronic obstructive pulmonary disea se exacerbation and/or pneumonia. Due to the elevated white count, empiric IV antibiotics will be gi emanuel. She will be started on IV Levaquin. She was given a 1 time dose of vancomycin. The plan is ad d azithromycin 250 mg 2 tabs today and 1 tab every day. Continue DuoNeb. I have increased the predn isone to 40 mg tab once daily. She used to take 10 mg twice a day. 2. Chronic pain - restart Ferguson 5/325 q.8 as needed. 3. Severe anxiety. I have started Xanax at 0.25 mg tab t.i.d. at a lower dose of 1 mg t.i.d. due to the mild respiratory distress. Overall, care will be supportive. Please note that this patient is a DNR.
--- NOTE | 2017-02-18 14:08 | CON ---
DATE OF CONSULTATION: 02/18/2017 CONSULTING PHYSICIAN: Lopez Turcios M.D. REASON FOR CONSULTATION: Acute respiratory failure related to COPD exacerbation. HISTORY OF THE PRESENT ILLNESS: This is a 66-year-old female who has seen Dr. Holman from our group f or while in the hospital. She came in last night with several days of increasing cough, congestion, and shortness of breath. She ordinarily lives in a care home. She says the care home refused to transport her at that time because she was not having "fever." She was briefly on BiPAP while in the emergency room, but that need has dissipated. She is complaining of severe congestion in her nec k area and difficulty coughing up secretions. The secretions are yellowish when she coughs them up. REVIEW OF SYSTEMS: The patient has severe joint pain in her back, neck and in her extremities. She has cough and congestion. Otherwise, 12 point review of systems is negative. MEDICATIONS PRIOR TO ADMISSION: Trazodone 25 mg nightly, prednisone 10 mg twice daily, simethicone 1 80 mg daily, senna as needed, potassium chloride 10 mEq daily, MiraLax 17 grams b.i.d., Zofran 4 mg e very 8 hours as needed, DuoNebs 4 times daily, furosemide 40 mg daily, iron sulfate 325 mg daily, Pro chata 40 mg daily, Symbicort 160/4.5 two puffs twice daily, baclofen 10 mg b.i.d., and Xanax 1 mg t.i.d . PAST MEDICAL HISTORY: 1. COPD. 2. Lung cancer. 3. Severe anxiety. 4. Hyperlipidemia. 5. Chronic low back pain. 6. Gastroesophageal reflux. 7. Hypertension. PAST SURGICAL HISTORY: 1. Left lower lobectomy for lung cancer. 2. Bilateral tubal ligation. ALLERGIES: PENICILLIN, AMPICILLIN, and TORADOL. SOCIAL HISTORY: Patient smoked for 40 years 1 pack per day, quit sometime in early , does not c onsume alcohol. She has lived in nurse home for at least 2 years. FAMILY MEDICAL HISTORY: Unremarkable for COPD. PHYSICAL EXAMINATION: VITAL SIGNS: Pulse 113, temperature 97, respiratory rate 24, O2 saturation 97%, blood pressure 120/8 0. GENERAL: She appears to be in mild respiratory distress. She has audible rhonchi. HEENT: Pupils react. Sclerae are anicteric. Oropharynx is dry. NECK: No JVD or bruits. She has audible coarse breath sounds in her neck. LUNGS: Fairly clear except for the upper airway sounds radiating down. CARDIOVASCULAR: S1, S2 regular, without murmur. ABDOMEN: Soft, nontender, nondistended. SKIN: No lesions. EXTREMITIES: No edema. NEUROLOGIC: Moves all 4 extremities without difficulty. LABORATORY DATA AND IMAGING DATA: White blood cell count 27.5, hematocrit 48.3, platelet count 168. Sodium 138, potassium 4.6, chloride 94, CO2 31, BUN 17, creatinine 0.8, glucose 243. Troponin 0.[address] was reviewed personally by myself demonstrates volume loss on the left. There is consolidation in the right lower lobe consistent with pneumonia. ASSESSMENT: Healthcare-acquired pneumonia. Patient lives in the care home and is at risk for req uiring atypical organisms. RECOMMENDATIONS: 1. In addition to Levaquin and Zithromax, I will go ahead and leave her on Levaquin for the time carey salvador and add other antibiotics as indicated by symptoms. She is allergic to PENICILLINS which somewhat limits what we can give her. 2. Agree with steroids. 3. Aggressive nebulization therapy every 4 hours with EzPAP.
[2017-02-18] MEDS: HYDROcodone/Acetaminophen 5/325 mg Tablet PO PRN ×2 (15:15→21:37)
[2017-02-18] MEDS: ALPRAZolam 0.25 MG TAB PO SCH ×2 (15:16→20:10)
[2017-02-18] MEDS ORDERED: Ondansetron ODT 4 MG TAB SL PRN (16:15)
[2017-02-18] MEDS ORDERED: Senokot S 8.6-50 MG TAB PO PRN (16:15)
[2017-02-18] MEDS ORDERED: ISOVUE-370 76%-LOCM 1 ML ONE (16:59)
[2017-02-18] MEDS: traZODone HCl 50 MG TAB PO SCH (20:09)
[2017-02-18] MEDS: Heparin 5,000 UNITS/ML VIAL SC SCH (20:10)
[2017-02-19] MEDS: methylPREDNISolone Sod Succ/PF 125 MG/2 ML VIAL IVP SCH ×2 (05:12→11:17)
[2017-02-19] MEDS: ALPRAZolam 1 MG TAB PO SCH ×3 (05:13→22:49)
[2017-02-19] MEDS: HYDROcodone/Acetaminophen 10/325 mg Tablet PO PRN ×3 (05:13→22:50)
[2017-02-19 06:36] LABS: #Basophils 0.1 thou/uL (0.0-0.2); #Eosinphils 0.1 thou/uL (0.0-0.7); #Lymphocytes 2.8 thou/uL (1.20-3.40); #Monocytes 1.4 thou/uL (0.11-0.59); #Neutrophils 19.5 thou/uL (1.40-6.50); %Basophils 0.3 % (0.0-1.0); %Eosinophils 0.3 % (0.0-10.0); %Lymphocytes 11.6 % (21.0-51.0); %Monocytes 5.7 % (0.0-10.0); %Neutrophils 82.1 % (42.0-75.0); Hemoglobin 15.5 g/dL (12.0-16.0); Mean Corpuscular HGB CONC 30.8 g/dL (32.0-36.0); Mean Corpuscular Hemoglobin 29.4 pg (27.0-31.0); Mean Corpuscular Volume 95.5 fl (81.0-99.0); Mean Platelet Volume 8.2 fL (7.4-10.4); Platelet Count 169 thou/uL (130-400); RBC Distribution Width 15.1 % (11.5-14.5); Red Blood Cell (RBC) Count 5.28 mill/uL (4.20-5.40); White Blood Cell (WBC) Count 23.8 thou/uL (4.8-10.8)
[2017-02-19 06:57] LABS: ALT (SGPT) 57 U/L (8-55); AST (SGOT) 24 U/L (5-34); Albumin 3.8 g/dL (3.4-4.8); Alkaline Phosphatase 114 U/L (40-150); Anion Gap 16 mmol/L (10-20); BUN (Urea Nitrogen) 19 mg/dL (9.8-20.1); Bilirubin, Total 0.8 mg/dL (0.2-1.2); Calc. Creatinine Clearance 84 mL/min (70-130); Carbon Dioxide 36 mmol/L (23-31); Chloride 93 mmol/L (98-107); Estimated GFR-MDRD 68; Globulin 3.2 g/dL (2.4-3.5); Glucose 171 mg/dL (80-115); Potassium 4.1 mmol/L (3.5-5.1); Sodium 141 mmol/L (136-145)
[2017-02-19] MEDS: Heparin 5,000 UNITS/ML VIAL SC SCH ×2 (08:08→22:52)
[2017-02-19] MEDS: Azithromycin 250 MG TAB PO SCH (08:08)
[2017-02-19] MEDS: Polyethylene Glycol 3350 17 GM Packet PO SCH (08:08)
[2017-02-19] MEDS: Furosemide 40 MG TAB PO SCH (08:08)
[2017-02-19] MEDS: Potassium Chloride 20 MEQ TAB PO SCH (08:08)
[2017-02-19] MEDS: FLUoxetine HCl 20 MG CAP PO SCH (08:08)
[2017-02-19] MEDS ORDERED: predniSONE 20 MG TAB PO SCH (09:00)
--- NOTE | 2017-02-19 11:56 | PRG ---
DATE OF SERVICE: 02/19/2017 SERVICE: Renal Medicine. SUBJECTIVE: Ms. Freeman is a 66-year-old white female who was admitted for shortness of breath. He r shortness of breath is multifactorial. She has underlying COPD as well as recent diagnosis of pneu monia. She has been seen Pulmonary per recommendation supportive care. She is currently on IV antib iotics as well as maximizing medication for her COPD. 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 She was asking to increase back her [place] to 10 mg tab q.6 hours. In addition, she request ed her Xanax to be increased to 1 mg tab t.i.d., which is a regular dose. This morning, she is feeli ng a little better, but still is having some productive cough. She still is somewhat agitated. Shor tness of breath is unchanged. OBJECTIVE: VITAL SIGNS: Blood pressure 118/61, heart rate 125, respiratory rate 20, pulse ox 97%, temperature 9 8.4. GENERAL: Noted to be awake, alert, supine, in mild respiratory distress. SKIN: Adequate turgor. HEENT: Pinkish conjunctivae, anicteric sclerae. NECK: No neck mass, no carotid bruits, no JVD. CHEST: No deformities. LUNGS: Harsh breath sounds with positive wheezing. HEART: Normal sinus rhythm. No murmur, no gallops or rubs. ABDOMEN: Globular, soft, nontender. EXTREMITIES: No edema, no deformities. MEDICATIONS: Of 02/19/2017 was reviewed. LABORATORY DATA: Of 02/19/2017, white count 23.8, hemoglobin 15.5, hematocrit 50.4, platelet count 1 69,000. Sodium 141, potassium 4.1, chloride 93, carbon dioxide 36, BUN 19, creatinine 0.83, glucose 171, AST 24, ALT 57, albumin 3.8. ASSESSMENT AND PLAN: 1. Shortness of breath, multifactorial etiology. This patient has underlying chronic obstructive pu lmonary disease and at the same time has pulmonary infiltrates noted on CT scan. Currently on IV ant ibiotics. Pulmonary following. 2. Severe anxiety - I have increased the Xanax to 1 mg tab t.i.d. per request. This is her home med ications. 3. Chronic pain, currently on [place] at 10 q.4 hours to q.6 hours. 4. Chronic obstructive pulmonary disease, maximizing DuoNeb treatment with this patient. In additio n, I have changed her p.o. prednisone to Solu-Medrol 125 mg IV q.6 hours. DuoNeb will be given q.4 h ours and as needed. Overall, prognosis remains poor. Patient is a DNR. Please note, she has history of lung cancer, whi ch has been resected and is currently in remission. Recheck basic met and CBC in a.m.
--- NOTE | 2017-02-19 15:46 | PRG ---
DATE OF SERVICE: 02/19/2017 SUBJECTIVE: Patient is doing reasonably well, but could have problems with upper airway secretions. PHYSICAL EXAMINATION: VITAL SIGNS: Temperature is 98.4, pulse 114, respiration is 22, O2 sat 97% on 4 liters, blood pressu re 118/61. HEENT: Unremarkable. NECK: Coarse rhonchi. LUNGS: Peripheral lung white are clear. CARDIAC: S1 and S2 regular. ABDOMEN: Soft. EXTREMITIES: No edema. LABORATORY DATA: Show white blood cell count is down to 23.8, hematocrit 50, platelet count 169. So dium 141, potassium 4.1, chloride 93, CO2 36, BUN 19, creatinine 0.8, glucose 171. ASSESSMENT: 1. Chronic obstructive pulmonary disease with exacerbation. 2. Pneumonia. 3. Upper airway secretions. PLAN: 1. Continue nebulization treatments. 2. Continue IV steroids, but reduce the dose. 3. IV antibiotics. 4. This will take time.
[2017-02-19] MEDS: traZODone HCl 50 MG TAB PO SCH (22:48)
[2017-02-20 05:16] LABS: #Lymphocytes 0.9 thou/uL (1.20-3.40); #Monocytes 0.3 thou/uL (0.11-0.59); #Neutrophils 11.7 thou/uL (1.40-6.50); %Eosinophils 0.2 % (0.0-10.0); %Lymphocytes 6.9 % (21.0-51.0); %Monocytes 2.4 % (0.0-10.0); %Neutrophils 90.6 % (42.0-75.0); BUN (Urea Nitrogen) 26 mg/dL (9.8-20.1); Calc. Creatinine Clearance 85 mL/min (70-130); Calcium 10.1 mg/dL (7.8-10.44); Estimated GFR-MDRD 69; Glucose 230 mg/dL (80-115); Hemoglobin 14.4 g/dL (12.0-16.0); Mean Corpuscular HGB CONC 31.2 g/dL (32.0-36.0); Mean Corpuscular Volume 93.2 fl (81.0-99.0); Mean Platelet Volume 7.7 fL (7.4-10.4); Platelet Count 160 thou/uL (130-400); RBC Distribution Width 14.6 % (11.5-14.5); Red Blood Cell (RBC) Count 4.98 mill/uL (4.20-5.40); White Blood Cell (WBC) Count 12.9 thou/uL (4.8-10.8)
[2017-02-20 05:25] LABS: Anion Gap 14 mmol/L (10-20); Carbon Dioxide 38 mmol/L (23-31); Chloride 93 mmol/L (98-107); Potassium 4.5 mmol/L (3.5-5.1); Sodium 140 mmol/L (136-145)
[2017-02-20] MEDS: FLUoxetine HCl 20 MG CAP PO SCH (09:00)
[2017-02-20] MEDS: ALPRAZolam 1 MG TAB PO SCH ×3 (09:00→20:21)
[2017-02-20] MEDS: Azithromycin 250 MG TAB PO SCH (09:00)
[2017-02-20] MEDS: Furosemide 40 MG TAB PO SCH (09:01)
[2017-02-20] MEDS: Heparin 5,000 UNITS/ML VIAL SC SCH (09:01)
[2017-02-20] MEDS: Potassium Chloride 20 MEQ TAB PO SCH (09:02)
[2017-02-20] MEDS: Polyethylene Glycol 3350 17 GM Packet PO SCH (09:02)
[2017-02-20] MEDS: HYDROcodone/Acetaminophen 10/325 mg Tablet PO PRN ×3 (09:06→20:25)
[2017-02-20] MEDS: guaiFENesin ER 600 MG TAB PO SCH (20:21)
[2017-02-20] MEDS: traZODone HCl 50 MG TAB PO SCH (20:22)
--- NOTE | 2017-02-20 22:33 | PRG ---
DATE OF SERVICES: 02/20/2017 SERVICE: Pulmonary Medicine. INTERVAL HISTORY: The patient is actually feeling a little bit better today compared to prior. That being said, she seems to downplay her improvement. She is breathing more comfortably and working a little less hard to breathe. She has complaints of discomfort over her sacrum where her sore is. Ot herwise, there has been no interval change to her condition, she had no overnight events. PHYSICAL EXAMINATION: VITAL SIGNS: Afebrile, pulse 107, blood pressure 134/73, respirations 20, saturation 98% on 3 liters nasal cannula. GENERAL: The patient is awake, alert, in no apparent distress. LUNGS: Decent air entry. There is a prolonged expiratory phase. I appreciate both expiratory wheez ing as well as crackles. Rhonchi present, but clear with cough. HEART: Normal rate, regular. ABDOMEN: Soft, nontender, nondistended. Bowel sounds are positive. MUSCULOSKELETAL: No cyanosis or clubbing. There is no pitting in the bilateral lower extremities. NEUROLOGIC: Grossly nonfocal. LABORATORY DATA: WBC is down trending to 12.9, hemoglobin 14.4, platelets 160,000. Creatinine 0.82. Basic metabolic profile is otherwise unremarkable/stable. Calcium 10.1. Influenza A and B is unre markable. Blood cultures x2 are negative. ASSESSMENT: 1. Acute on chronic hypoxic respiratory failure. 2. Chronic obstructive pulmonary disease with acute exacerbation. 3. Healthcare-associated pneumonia. PLAN: We will continue our antibiotics, steroids, nebulized medications. Other supportive measures will be continued. Wound Care consultation will be initiated.
[2017-02-21] MEDS: HYDROcodone/Acetaminophen 10/325 mg Tablet PO PRN ×3 (05:43→20:26)
[2017-02-21] MEDS: FLUoxetine HCl 20 MG CAP PO SCH (08:36)
[2017-02-21] MEDS: predniSONE 20 MG TAB PO SCH (08:36)
[2017-02-21] MEDS: Enoxaparin Sodium 40 MG/0.4 ML SYRINGE SC SCH (08:37)
[2017-02-21] MEDS: ALPRAZolam 1 MG TAB PO SCH ×3 (08:37→20:26)
[2017-02-21] MEDS: guaiFENesin ER 600 MG TAB PO SCH ×2 (08:37→20:26)
[2017-02-21] MEDS: Furosemide 40 MG TAB PO SCH (08:37)
[2017-02-21] MEDS: Loratadine 10 MG TAB PO SCH (08:37)
[2017-02-21] MEDS: Azithromycin 250 MG TAB PO SCH (08:37)
[2017-02-21] MEDS: Potassium Chloride 20 MEQ TAB PO SCH (08:37)
[2017-02-21] MEDS: Polyethylene Glycol 3350 17 GM Packet PO SCH (08:37)
--- NOTE | 2017-02-21 13:48 | PQF ---
CLINICAL DOCUMENTATION IMPROVEMENT CLARIFICATION FORM: ICD-10 Updated PLEASE DO AN ADDENDUM TO THE PROGRESS NOTE WITH ANY DOCUMENTATION UPDATES OR ADDITIONS AND CARRY THROUGH TO DC SUMMARY. THANK YOU. DATE: 02/21/17 ATTN: DR. AVALOS Please exercise your independent, professional judgment in responding to the clarification form. Clinical indicators are provided on the bottom of this form for your review Please check appropriate box(s): [y ] Sepsis due to: (Pna, UTI, gangrenous gall bladder, etc.) ___pneumonia____ Due to: [ ] Device (please specify) [ ] Implant [ ] Graft [ ] Infusion [ ] SIRS due to non-infectious process (please specify etiology) [ ] with organ dysfunction [ ] without organ dysfunction [ ] Severe sepsis with acute organ dysfunction of: (Examples: respiratory failure, encephalopathy, acute kidney failure, other) [ ] Localized infection without sepsis [ ] Other diagnosis [ ] Unable to determine In addition, please specify: Present on Admission (POA): [ ] Yes [ ] No [ ] Unable to determine For continuity of documentation, please document condition throughout progress notes and discharge summary. Thank You. 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 All Rights Reserved INNA [email or web address] Office: [phone] [facility]
[2017-02-21] MEDS ORDERED: PROVENTIL INHALER 6.7 G (200 INHALATIONS) INH SCH (15:45)
--- NOTE | 2017-02-21 19:15 | PRG ---
DATE OF SERVICE: 02/21/2017 SUBJECTIVE: Bhakti Freeman says she is feeling better, although she is not back to her baseline. Екатерина love was frustrated because she says she is not strong enough to cough up her mucus. She says an albute rol metered dose inhaler at the bedside helps her at the long term. OBJECTIVE: VITAL SIGNS: She is afebrile, heart rate is 104, respiratory rate is 24, oximetry is 90% on 3 liters , blood pressure 142/81. Intake yesterday was 900 mL, there is no output recorded because she has a pull-up on. LUNGS: Remarkable for faint wheezes. CARDIOVASCULAR: Regular rhythm. ABDOMEN: Soft. IMPRESSION: 1. Chronic obstructive pulmonary disease exacerbation. 2. Pneumonia. 3. Retained secretions, predominantly in her trachea. PLAN: Metered dose inhaler at bedside. Her inactivity and premorbid deconditioning affects recovery and time in the hospital.
[2017-02-21] MEDS: traZODone HCl 50 MG TAB PO SCH (20:26)
[2017-02-22] MEDS: HYDROcodone/Acetaminophen 10/325 mg Tablet PO PRN ×3 (05:35→20:22)
--- NOTE | 2017-02-22 07:35 | PRG ---
DATE OF SERVICE: 02/22/2017 Bhakti Freeman says she feels a little bit better. She used her metered dose inhaler once last night and once this morning. PHYSICAL EXAMINATION: VITAL SIGNS: She is afebrile, heart rate 104, respiratory rate is 18, oximetry is 93, blood pressure 133/76. LUNGS: She still has diffuse wheezes. Some of this appears to be upper airway mediated. HEART: Re gular rhythm. ABDOMEN: Abdomen is soft. LABORATORY DATA: There is no new lab. IMPRESSION: 1. Chronic obstructive pulmonary disease exacerbation. 2. Pneumonia. 3. Retained secretions improved with metered dose inhaler at the bedside. PLAN: Continue supportive care, nebulizer treatments, p.r.n. use of her metered dose inhaler. Susi nue with her prednisone. Her premorbid inactivity aggravates her current condition and makes for a l onger recovery as I have explained to her.
[2017-02-22] MEDS: ALPRAZolam 1 MG TAB PO SCH ×3 (09:28→20:17)
[2017-02-22] MEDS: predniSONE 20 MG TAB PO SCH (09:28)
[2017-02-22] MEDS: Furosemide 40 MG TAB PO SCH (09:30)
[2017-02-22] MEDS: FLUoxetine HCl 20 MG CAP PO SCH (09:30)
[2017-02-22] MEDS: Azithromycin 250 MG TAB PO SCH (09:33)
[2017-02-22] MEDS: Polyethylene Glycol 3350 17 GM Packet PO SCH (09:35)
[2017-02-22] MEDS: Loratadine 10 MG TAB PO SCH (09:35)
[2017-02-22] MEDS: guaiFENesin ER 600 MG TAB PO SCH ×2 (09:35→20:17)
[2017-02-22] MEDS: Enoxaparin Sodium 40 MG/0.4 ML SYRINGE SC SCH (09:54)
[2017-02-22] MEDS: Potassium Chloride 20 MEQ TAB PO SCH (10:00)
[2017-02-22] MEDS: traZODone HCl 50 MG TAB PO SCH (20:17)
[2017-02-23] MEDS: HYDROcodone/Acetaminophen 10/325 mg Tablet PO PRN ×3 (04:26→22:19)
[2017-02-23 06:18] LABS: #Eosinphils 0.1 thou/uL (0.0-0.7); #Lymphocytes 1.3 thou/uL (1.20-3.40); #Monocytes 1.2 thou/uL (0.11-0.59); #Neutrophils 9.5 thou/uL (1.40-6.50); %Basophils 0.1 % (0.0-1.0); %Eosinophils 0.6 % (0.0-10.0); %Lymphocytes 10.6 % (21.0-51.0); %Monocytes 10.2 % (0.0-10.0); %Neutrophils 78.6 % (42.0-75.0); Hemoglobin 14.3 g/dL (12.0-16.0); Mean Corpuscular Hemoglobin 29.3 pg (27.0-31.0); Mean Corpuscular Volume 91.6 fl (81.0-99.0); Mean Platelet Volume 7.8 fL (7.4-10.4); Platelet Count 190 thou/uL (130-400); RBC Distribution Width 14.6 % (11.5-14.5); Red Blood Cell (RBC) Count 4.89 mill/uL (4.20-5.40)
[2017-02-23 06:44] VITALS: BMI 29.8
[2017-02-23] MEDS: FLUoxetine HCl 20 MG CAP PO SCH (08:15)
[2017-02-23] MEDS: Furosemide 40 MG TAB PO SCH (08:15)
[2017-02-23] MEDS: predniSONE 20 MG TAB PO SCH (08:18)
[2017-02-23] MEDS: Loratadine 10 MG TAB PO SCH (08:18)
[2017-02-23] MEDS: Polyethylene Glycol 3350 17 GM Packet PO SCH (08:18)
[2017-02-23] MEDS: ALPRAZolam 1 MG TAB PO SCH ×3 (08:18→22:11)
[2017-02-23] MEDS: Potassium Chloride 20 MEQ TAB PO SCH (08:18)
[2017-02-23] MEDS: guaiFENesin ER 600 MG TAB PO SCH ×2 (08:18→21:56)
[2017-02-23] MEDS: Enoxaparin Sodium 40 MG/0.4 ML SYRINGE SC SCH (08:19)
[2017-02-23 15:21] LABS: Hemoglobin 14.2 g/dL (12.0-16.0)
[2017-02-23] MEDS ORDERED: Fluticasone Propionate Nasal Spray 16 gm Bottle NASAL SCH (20:45)
[2017-02-23] MEDS: traZODone HCl 50 MG TAB PO SCH (21:52)
--- NOTE | 2017-02-24 05:51 | PRG ---
DATE OF SERVICE: 02/23/2017 SUBJECTIVE: Bhakti Freeman remains essentially the same. She has mild resting tachycardia. PHYSICAL EXAMINATION: VITAL SIGNS: She is afebrile, respiratory rate is in 20s, oximetry is 93 on 4 liters, blood pressure 120/59. LUNGS: Remarkable for coarse diffuse wheezes. HEART: Regular rhythm. ABDOMEN: Soft. She is so weak. She can cough up her secretions. She has a set up on the side of the bed. She is totally supine all of the time. LABORATORY DATA: Her white count is 12, her hemoglobin is 14.3, platelets 190,000. There are no new electrolytes. IMPRESSION: 1. Chronic obstructive pulmonary disease exacerbation, asthmatic bronchitis. 2. Pneumonia. 3. Retained secretions. 4. Extreme deconditioning. 5. Obesity. Her deconditioning and her weakness are the biggest impediment to recovery from this illness. She is so weak, now she can sit on the side of the bed. I actually will be surprised if she makes it to a point where she can be discharged from the hospital. It may be appropriate to consider inpatient hospice for since she is not improving at all with inpati ent care. She is a do not resuscitate patient, but she has only been here for 5-6 days, so we might consider giving her 2-3 more days for reconsider inpatient hospice.
[2017-02-24 06:35] LABS: Hemoglobin 13.9 g/dL (12.0-16.0); Platelet Count 197 thou/uL (130-400)
[2017-02-24 06:54] LABS: Anion Gap 16 mmol/L (10-20); BUN (Urea Nitrogen) 38 mg/dL (9.8-20.1); Calc. Creatinine Clearance 87 mL/min (70-130); Calcium 9.8 mg/dL (7.8-10.44); Carbon Dioxide 37 mmol/L (23-31); Chloride 89 mmol/L (98-107); Estimated GFR-MDRD 75; Glucose 131 mg/dL (80-115); Potassium 3.7 mmol/L (3.5-5.1); Sodium 138 mmol/L (136-145)
[2017-02-24] MEDS: Fluticasone Propionate Nasal Spray 16 gm Bottle NASAL SCH (08:13)
[2017-02-24] MEDS: predniSONE 20 MG TAB PO SCH (08:13)
[2017-02-24] MEDS: FLUoxetine HCl 20 MG CAP PO SCH (08:13)
[2017-02-24] MEDS: guaiFENesin ER 600 MG TAB PO SCH ×2 (08:13→20:46)
[2017-02-24] MEDS: Potassium Chloride 20 MEQ TAB PO SCH (08:13)
[2017-02-24] MEDS: Loratadine 10 MG TAB PO SCH (08:14)
[2017-02-24] MEDS: Polyethylene Glycol 3350 17 GM Packet PO SCH (08:14)
[2017-02-24] MEDS: ALPRAZolam 1 MG TAB PO SCH ×3 (08:14→20:46)
[2017-02-24] MEDS: Furosemide 40 MG TAB PO SCH (08:14)
[2017-02-24] MEDS ORDERED: Morphine 4 MG/ML VIAL SLOW IVP PRN (12:00)
--- NOTE | 2017-02-24 14:56 | PRG ---
DATE OF SERVICE: 02/24/2017 SUBJECTIVE: Bhakti Freeman is semi-tearful as always when I make rounds. PHYSICAL EXAMINATION: VITAL SIGNS: She is afebrile, heart rate 112, respiratory rate 16, oximetry 91% on 3 liters, blood p ressure 129/73. LUNGS: Remarkable for diffuse wheezes. Majority of wheezes, I believe are mediated by an inability to clear secretions. HEART: Regular rhythm. ABDOMEN: Soft. LABORATORY DATA: There is no new laboratory data other than electrolytes; sodium 138, potassium 3.7, chloride 89, bicarbonate 37, BUN 38, creatinine 0.77. IMPRESSION AND PLAN: Obstructive lung disease, weakness, and deconditioning. I doubt she will survi ve this hospitalization. It would be reasonable to consider inpatient hospice in my opinion. I woul d recommend low doses of morphine for comfort. She is okay with this idea.
[2017-02-24] MEDS: HYDROcodone/Acetaminophen 10/325 mg Tablet PO PRN ×2 (16:46→20:57)
[2017-02-24] MEDS: traZODone HCl 50 MG TAB PO SCH (20:46)
[2017-02-25] MEDS: HYDROcodone/Acetaminophen 10/325 mg Tablet PO PRN ×3 (06:31→21:16)
[2017-02-25] MEDS: ALPRAZolam 1 MG TAB PO SCH ×3 (06:52→21:16)
[2017-02-25] MEDS: FLUoxetine HCl 20 MG CAP PO SCH (09:44)
[2017-02-25] MEDS: guaiFENesin ER 600 MG TAB PO SCH ×2 (09:45→21:16)
[2017-02-25] MEDS: Potassium Chloride 20 MEQ TAB PO SCH (09:45)
[2017-02-25] MEDS: Loratadine 10 MG TAB PO SCH (09:45)
[2017-02-25] MEDS: Furosemide 40 MG TAB PO SCH (09:45)
[2017-02-25] MEDS: Polyethylene Glycol 3350 17 GM Packet PO SCH (09:45)
[2017-02-25] MEDS: Fluticasone Propionate Nasal Spray 16 gm Bottle NASAL SCH (09:46)
[2017-02-25] MEDS: Budesonide 0.5 MG/2 ML NEB NEB SCH (19:16)
--- NOTE | 2017-02-25 20:38 | PRG ---
DATE OF SERVICE: 02/25/2017 SERVICE: Pulmonary Medicine. INTERVAL HISTORY: The patient is doing fine from a respiratory standpoint. She is a little weak and debilitated. She really does not have much motivation to move or get out of bed. She indicates that her breathing has much improved, but she hurts all over. PHYSICAL EXAMINATION: VITAL SIGNS: Afebrile, pulse 81, blood pressure 107/67, respirations 16, saturation 98% on 3 liters nasal cannula. GENERAL: The patient is awake, alert, in no apparent distress. LUNGS: Decent air entry. Thera are both rhonchi and wheezing at present. HEART: Normal rate, regular. ABDOMEN: Soft, nontender, nondistended. Bowel sounds are positive. MUSCULOSKELETAL: No cyanosis or clubbing. No pitting in the bilateral lower extremities. NEUROLOGIC: Grossly nonfocal. LABORATORY DATA: Influenza A and B are unremarkable. Blood cultures are negative x2. Occult blood in the stool is positive. ASSESSMENT: 1. Acute on chronic hypoxic respiratory failure, resolved to baseline. 2. Chronic obstructive pulmonary disease with acute exacerbation. 3. Debility. 4. Healthcare-associated pneumonia. PLAN: We will continue supportive care. I asked the patient to get up and move , and work with physical therapy, but she hesitated. Either way, it will be ordered. We will try to motivate her to get up into a chair 3 times daily and increase as tolerated. Pulmonary Critical Care, we will continue to follow while she remains in house. SIDNEY
[2017-02-25] MEDS: traZODone HCl 50 MG TAB PO SCH (21:17)
[2017-02-26] MEDS: HYDROcodone/Acetaminophen 10/325 mg Tablet PO PRN ×3 (03:28→15:20)
[2017-02-26] MEDS: Budesonide 0.5 MG/2 ML NEB NEB SCH ×2 (08:46→19:12)
[2017-02-26] MEDS: Polyethylene Glycol 3350 17 GM Packet PO SCH (09:11)
[2017-02-26] MEDS: ALPRAZolam 1 MG TAB PO SCH ×3 (09:11→20:39)
[2017-02-26] MEDS: Potassium Chloride 20 MEQ TAB PO SCH (09:12)
[2017-02-26] MEDS: guaiFENesin ER 600 MG TAB PO SCH ×2 (09:12→20:39)
[2017-02-26] MEDS: FLUoxetine HCl 20 MG CAP PO SCH (09:12)
[2017-02-26] MEDS: Furosemide 40 MG TAB PO SCH (09:12)
[2017-02-26] MEDS: Loratadine 10 MG TAB PO SCH (09:12)
[2017-02-26] MEDS: Fluticasone Propionate Nasal Spray 16 gm Bottle NASAL SCH (09:13)
[2017-02-26] MEDS: traZODone HCl 50 MG TAB PO SCH (20:38)
--- NOTE | 2017-02-26 22:44 | PRG ---
DATE OF SERVICE: 02/26/2017 SERVICE: Pulmonary Medicine. INTERVAL HISTORY: The patient is doing okay from a respiratory standpoint. She is actually rainer franco that she feels a little bit better today. Otherwise, there has been no interval change to her con dition. PHYSICAL EXAMINATION: VITAL SIGNS: Afebrile, pulse 115, blood pressure 88/67, respirations 22, saturation 92% on 3 liters nasal cannula. GENERAL: The patient is awake, alert, in no apparent distress. LUNGS: Good air entry. Rhonchi are present throughout bilateral lung white, as are dependent crack les. HEART: Normal rate, regular. ABDOMEN: Soft, nontender, nondistended. Bowel sounds are positive. MUSCULOSKELETAL: No cyanosis or clubbing. Trace pitting in the bilateral lower extremities is impro angel. GENITOURINARY: No Francois. NEUROLOGIC: Grossly nonfocal. ASSESSMENT: 1. Acute on chronic hypoxic respiratory failure, resolved to baseline. 2. Chronic obstructive pulmonary disease with acute exacerbation. 3. Debility. 4. Healthcare-associated pneumonia. PLAN: We will continue our supportive care. It is my understanding that the patient is interested i n transitioning back to her nursing facility under the care of hospice. Pulmonary will continue to edelmira solitario for the time being.
[2017-02-27] MEDS: HYDROcodone/Acetaminophen 10/325 mg Tablet PO PRN ×3 (06:23→20:54)
[2017-02-27] MEDS: Budesonide 0.5 MG/2 ML NEB NEB SCH ×2 (07:30→20:07)
[2017-02-27] MEDS: ALPRAZolam 1 MG TAB PO SCH ×3 (08:23→20:55)
[2017-02-27] MEDS: Potassium Chloride 20 MEQ TAB PO SCH (08:23)
[2017-02-27] MEDS: FLUoxetine HCl 20 MG CAP PO SCH (08:23)
[2017-02-27] MEDS: guaiFENesin ER 600 MG TAB PO SCH ×2 (08:23→20:53)
[2017-02-27] MEDS: Loratadine 10 MG TAB PO SCH (08:24)
[2017-02-27] MEDS: Fluticasone Propionate Nasal Spray 16 gm Bottle NASAL SCH (08:24)
[2017-02-27] MEDS: Polyethylene Glycol 3350 17 GM Packet PO SCH (08:24)
[2017-02-27] MEDS ORDERED: Sodium Chloride 0.9% 500 ML IVPB ONE (19:00)
[2017-02-27] MEDS: traZODone HCl 50 MG TAB PO SCH (20:53)
[2017-02-28] MEDS: HYDROcodone/Acetaminophen 10/325 mg Tablet PO PRN ×2 (06:48→13:39)
[2017-02-28 07:13] LABS: Anion Gap 13 mmol/L (10-20); BUN (Urea Nitrogen) 17 mg/dL (9.8-20.1); Calc. Creatinine Clearance 95 mL/min (70-130); Carbon Dioxide 34 mmol/L (23-31); Chloride 98 mmol/L (98-107); Estimated GFR-MDRD 83; Glucose 108 mg/dL (80-115); Sodium 141 mmol/L (136-145)
[2017-02-28] MEDS: FLUoxetine HCl 20 MG CAP PO SCH (08:13)
[2017-02-28] MEDS: Potassium Chloride 20 MEQ TAB PO SCH (08:14)
[2017-02-28] MEDS: Loratadine 10 MG TAB PO SCH (08:14)
[2017-02-28] MEDS: ALPRAZolam 1 MG TAB PO SCH ×2 (08:14→14:47)
[2017-02-28] MEDS: guaiFENesin ER 600 MG TAB PO SCH (08:14)
[2017-02-28] MEDS: Polyethylene Glycol 3350 17 GM Packet PO SCH (08:18)
[2017-02-28] MEDS: Fluticasone Propionate Nasal Spray 16 gm Bottle NASAL SCH (08:18)
[2017-02-28] MEDS: Budesonide 0.5 MG/2 ML NEB NEB SCH (09:43)
[2017-02-28 13:00] VITALS: BP 101/68; TEMP 97.8
--- NOTE | 2017-03-02 00:38 | DIS ---
DATE OF ADMISSION: 02/18/2017 DATE OF DISCHARGE: 02/28/2017 ADMITTING DIAGNOSES: 1. Chronic obstructive pulmonary disease exacerbation, acute on chronic. 2. Pneumonia. 3. Chronic pain. 4. Anxiety disorder. 5. Hypotension. FINAL DIAGNOSES: 1. Acute on chronic respiratory failure secondary to chronic obstructive pulmonary disease exacerbat ion, end stage. 2. Pneumonia. 3. Severe deconditioning. 4. Chronic pain. 5. Anxiety disorder. 6. Hypotension. 7. Generalized weakness and retained secretions predominantly in her trachea. BRIEF SUMMARY OF HOSPITAL COURSE: Ms. Freeman is a 66-year-old male admitted because of r espiratory failure secondary to chronic obstructive pulmonary disease exacerbation. The patient has end-stage COPD on home oxygen as well as general debilitation. The patient does not ambulate, does no t get out of the bed much. The patient was started on nebulizer treatment. She was found to have pn eumonia as well. She was started on Solu-Medrol and IV antibiotics with Levaquin. A pulmonary consu lt was done. The patient was seen by Dr. Mercado who suggested continuing with antibiotics for healt hcare-associated pneumonia. Since she is allergic to PENICILLIN, the options were limited, so the pa amador was continued on antibiotics and neb treatments, Solu-Medrol, Mucinex, but the patient did not improve much. She continued to have a lot of secretions in the trachea. She is unable to cough out the secretions. She has a lot of retained secretions in the upper airways and trachea. The patient was closely monitored, but still her condition was getting worse without much improvement. In spite of adequate treatment, manager corporate communications suggested possibly she has end-stage COPD with severe deconditi oning and also because of her retained secretions. She may be a candidate for hospice, so it was dis cussed with the patient and the patient agreed to be on hospice. So in view of that, the patient is being [facility] to [facility] where she will be on hospice. At the time of discharge, she wa s in mild respiratory distress. The lungs still have wheezing. HEART: S1, S2 regular. DISCHARGE MEDICATIONS: Include prednisone 40 mg daily, trazodone 25 mg at bedtime, Zyrtec daily, alb uterol inhaler p.r.n., Senokot p.r.n., baclofen 10 mg b.i.d., Lipitor 40 mg daily, Xanax 1 mg t.i.d., MiraLax daily 17 grams, [place] 10/325 t.i.d., Prozac 40 mg daily, Symbicort 160/4.5 two puffs b.i.d., Zofran p.r.n., DuoNebs q.i.d., omeprazole 20 mg daily, simethicone daily, Mucinex 600 b.i.d. The patient's condition is critical. Her prognosis is very poor. The patient is DNR and she will be on hosp[facility] for comfort [facility] at the [facility].
--- NOTE | 2017-03-17 14:57 | ADD-CON ---
ADDENDUM DATE OF CONSULTATION: 02/18/2017 Seventy minutes of time was spent at patient's bedside and/or on the patient's floor performing the c onsultation. The patient has been prescribed nebulization treatments 4 times daily.
== END 2017-02-28 15:50 | disposition hospice, inpatient (51) | DRG 871 ==
LOC: ERS 01:41 → ERHOLD 04:45 → 2NO 14:33 → SJJU 02-24 00:21
PROVIDERS: ADMIT Internal Medicine; ATTEND Internal Medicine
DX: A41.9 Sepsis, unspecified organism (principal); J96.21 Acute and chronic respiratory failure with hypoxia; I95.9 Hypotension, unspecified; J18.9 Pneumonia, unspecified organism; Z99.81 Dependence on supplemental oxygen; J44.0 Chronic obstructive pulmonary disease with (acute) lower respiratory infection; J44.1 Chronic obstructive pulmonary disease with (acute) exacerbation; R65.20 Severe sepsis without septic shock; Z51.5 Encounter for palliative care; G89.29 Other chronic pain; F41.9 Anxiety disorder, unspecified; Z88.0 Allergy status to penicillin; Z66 Do not resuscitate; I10 Essential (primary) hypertension; Z98.51 Tubal ligation status; E66.9 Obesity, unspecified; Z85.118 Personal history of other malignant neoplasm of bronchus and lung; Z87.891 Personal history of nicotine dependence; D64.9 Anemia, unspecified; M54.9 Dorsalgia, unspecified; Z68.29 Body mass index [BMI] 29.0-29.9, adult
CPT/HCPCS: 36415; 36416; 71010; 71275; 80048; 80053; 82274; 82553; 83605; 83880; 84484; 85014; 85018; 85025; 85049; 87040; 87804; 93005; 94640; 94660; 96361; 96365; 96366; A4216; G8978-GP-CM; G8979-GP-CK; J1644; J1650; J1956; J2270; J2920; J2930; J3370; J7050; J7506; J7620; J7626